=== PATIENT | female | born 1940 | race Caucasian/White ===

== ENCOUNTER 2020-03-11 08:53 | Emergency (ER) | payer MEDICARE, OTHER, SELFPAY ==
[2020-03-11 09:10] VITALS: BMI 31.5
[2020-03-11 09:16] VITALS: BP 191/85; PULSE 63; RESP 18; TEMP 36.7; O2SAT 100
--- NOTE | 2020-03-11 09:35 | XR_ITS ---
WS: [id number] EXAM: LEFT KNEE: 3 VIEWS DATE OF EXAMINATION: 03/11/2020, 1004 hours COMPARISON: None. HISTORY: Patient is 79 years old with knee pain and swelling. FINDINGS: Overall bone density is decreased. Slight chondrocalcinosis changes are demonstrated. Minimal degener ative changes are noted. No fracture, lytic or blastic process. Minimal fluid in the suprapatellar po uch. Extra articular soft tissues are unremarkable. XR/XR knee LT 3V* [id number] IMPRESSION: Minimal changes of osteoarthritis. Minimal joint fluid. No acute abnormality.
--- NOTE | 2020-03-11 09:38 | ED_ITS ---
HPI - Extremity Problem General: Chief complaint: Extremity Problem,Nontraumatic Stated complaint: L KNEE PAIN Time Seen by Provider: 03/11/20 08:55 Source: patient Mode of arrival: ambulatory (with use of cane) Limitations: no limitations History of Present Illness: HPI Narrative: Patient is a 79-year-old female who presents to ED today along with her for complaints of left knee pain. Patient tells me she was in [place] yesterday and did a large amount of walking. Patient states that the end of the day she noticed pain to her left knee and swelling. Patient does have a history of osteoarthritis in the knee. She denies any direct injury or trauma. No twisting injuries. Patient is ambulatory with the help of a cane. MD Complaint: joint swelling and joint pain Onset (ago): hour(s) Pain Consistency: constant Location: left and lower extremity Relieving factors: immobilization and elevation Exacerbating factors: range of motion, weight bearing and walking Associated symptoms: Reports no associated symptoms Review of Systems Musc: Reports: joint pain and joint swelling; Denies: neck pain, back pain, extremity pain, extremity swelling, joint redness, joint warmth, limited range of motion or muscle cramps Neuro: Denies: numbness in extremities or sensory changes Physical Exam Const: COMMON NORMALS: no acute distress, average body habitus, patient oriented x3, no limitations, healthy appearing, alert and well nourished Extremity: GENERAL: Yes normal exam except as noted LEFT LOWER EXTREMITY: Yes knee joint Left knee: Yes inspection (effusion noted), Yes palpation (mild- anterior/medial joint line), Yes ROM (normal) and Yes neurovascular exam (normal) Neuro: COMMON NORMALS: patient oriented x3 SENSORIUM/ORIENTATION: Yes alert Skin: NARRATIVE SKIN EXAM: normal skin examination; no redness/heat overlying knee joint Course Vital Signs: Vital signs: Vital Signs Temperature 98.0 F 03/11/20 09:16 Pulse Rate 63 03/11/20 09:16 Respiratory Rate 18 03/11/20 09:16 Blood Pressure 191/85 03/11/20 09:16 Pulse Oximetry 100 03/11/20 09:16 MDM - Extremity (Nontraumatic) Imaging Data^: XR L knee: Radiologist's impression: [address] [address] XRay Report Signed Patient: Gabbie Flores Unit #: [id number] : 1940 Age/Sex: 79 / F ADM Date: 03/11/20 Loc: ER Room/Bed: Attending Dr: Ordering Provider/Ordering MD: Serenity Grace Date of Service: 03/11/20 Procedure(s): XR knee LT 3V* [id number] Accession Number(s): [id number] Report Number: [id number] WS: [id number] EXAM: LEFT KNEE: 3 VIEWS DATE OF EXAMINATION: 03/11/2020, 1004 hours COMPARISON: None. HISTORY: Patient is 79 years old with knee pain and swelling. FINDINGS: Overall bone density is decreased. Slight chondrocalcinosis changes are demonstrated. Minimal degenerative changes are noted. No fracture, lytic or blastic process. Minimal fluid in the suprapa tellar pouch. Extra articular soft tissues are unremarkable. XR/XR knee LT 3V* [id number] IMPRESSION: Minimal changes of osteoarthritis. Minimal joint fluid. No acute abnormality. Dictated By: Candido Rangel MD Signed By: Candido Rangel MD Signed Date/Time: 03/11/20 1017 DD/ 1016 Discharge Plan Discharge Patient Disposition: Home Clinical Impression: Effusion of knee joint, left Condition: Stable Prescriptions: New methylprednisolone [Medrol (Chris)] 4 mg tablets,dose pack See Rx Instructions .ROUTE .COMPLEX Qty: 21 RF: 0 hydrocodone-acetaminophen 5-325 mg tablet 1 tab PO Q6H PRN (Reason: pain) Qty: 10 RF: 0 Discharge Orders: Discharge Order (Routine); Ordered 03/11/20 Ordered By: Serenity Grace Referrals: Gabi Adler, CALVIN [Primary Care Provider] - Patient Instructions: Osteoarthritis (ED), Knee Effusion (ED) Activity Restrictions/Additional Instructions: As discussed use the Juan Ramon wrap for compression of your knee joint, ice the ext remity for 20 minutes every hour, elevate as much as possible. You may use the pain medications for severe pain. Otherwise please use [id number] analgesics. Please follow-up with your primary care provider in 1 to 2 weeks for continued pain. Coding Level of Care Code ED Box Spinner for Padmini Merida
[2020-03-11 11:04] VITALS: BP 189/88; PULSE 61; RESP 18; O2SAT 100
== END 2020-03-11 11:04 | disposition home or self-care (01) ==
PROVIDERS: Emergency Provider Physician Assistant; PCP Nurse Practitioner Family
DX: M25.462 Effusion, left knee (principal)
CPT/HCPCS: 12345; 73562; 99282; 99283

== ENCOUNTER 2020-04-13 10:35 | Outpatient (CLI) | payer MEDICARE, OTHER, SELFPAY ==
--- NOTE | 2020-04-13 10:43 | XR_ITS ---
WS: [id number] CHEST 2 VIEWS HISTORY: CHEST PAIN ON BREATHING COMPARISON: 04/24/2017 Lungs: New linear scar atelectasis in the mid LEFT lung. Otherwise lungs are clear. No pleural effusi on or pneumothorax. Normal vasculature. Cardiac size: Normal. Mediastinum/Aorta: LEFT subclavian dual lead cardiac pacer. No mediastinal widening. Bones: Mild increase in thoracic kyphosis. Prior cholecystectomy. XR/XR chest 2V* [id number] IMPRESSION: 1. New minimal scar atelectasis in the mid LEFT lung. 2. No pneumonia.
== END 2020-04-13 10:36 | disposition home or self-care (01) ==
LOC: RADWPI 10:39
PROVIDERS: Family Provider Family Medicine; PCP Nurse Practitioner Family; Visit Provider Family Medicine
DX: R07.1 Chest pain on breathing (principal); J98.11 Atelectasis
CPT/HCPCS: 71046

== ENCOUNTER 2020-07-03 09:52 | Outpatient (CLI) | payer MEDICARE, OTHER, SELFPAY ==
--- NOTE | 2020-07-03 10:08 | MM_ITS ---
WS: [id number] BILATERAL DIGITAL SCREENING MAMMOGRAPHY WITH CAD CLINICAL INFORMATION: SCREENING HISTORY: Screening mammogram. No current complaints. COMPARISON: May 24, 2019 TECHNIQUE: Bilateral CC and MLO views. FINDINGS: Scattered fibroglandular densities bilaterally. No suspicious focal mass, asymmetry, calcifications, or architectural distortion. No evidence of malignancy. Punctate calcifications left breast. MM/[place] [id number] IMPRESSION: BI-RADS: 2-Benign FOLLOW UP: 1 Year Follow-up Recommend return to annual screening mammography.
== END 2020-07-03 09:53 | disposition home or self-care (01) ==
PROVIDERS: Family Provider Family Medicine; PCP Nurse Practitioner Family; Visit Provider Family Medicine
DX: Z12.31 Encounter for screening mammogram for malignant neoplasm of breast (principal)
CPT/HCPCS: 77067

== ENCOUNTER 2020-10-05 10:49 | Outpatient (CLI) | payer MEDICARE, OTHER, SELFPAY ==
--- NOTE | 2020-10-05 11:01 | CT_ITS ---
WS: [id number] CT scan of the chest without IV contrast, additional two-dimensional coronal and sagittal reconstruct ion was performed. 10/05/2020 Clinical Data: LUNG NODULE Comparison: CT chest, 07/19/2019. DLP: 859.[address] scans at [facility] use at least one of these dose optimization techniques: automat ed exposure control; mA and/or kV adjustment per patient size (includes targeted exams where dose is matched to clinical indication); or iterative reconstruction. Findings: No nodules, masses or effusions are seen. The heart size is slightly enlarged with a small pericardia l effusion. No pneumonia or pneumothorax is seen. The permanent pacemaker remains in good position. T he pulmonary arterial system and thoracic aorta demonstrate no abnormalities or dilatations. There is no axillary or significant mediastinal adenopathy. The upper abdomen demonstrates clips in the gallbladder fossa from a cholecystectomy, otherwise its u nremarkable. CT/CT chest wo con [id number] Impression: 1. No pulmonary nodules are seen. 2. Cardiomegaly and small pericardial effusion.
== END 2020-10-05 10:50 | disposition home or self-care (01) ==
LOC: RADWPI 10:51
PROVIDERS: PCP Nurse Practitioner Family; Visit Provider Nurse Practitioner Family
DX: R91.1 Solitary pulmonary nodule (principal); I51.7 Cardiomegaly; I31.3 Pericardial effusion (noninflammatory)
CPT/HCPCS: 71250

== ENCOUNTER 2021-07-05 09:39 | Outpatient (CLI) | payer MEDICARE, OTHER, SELFPAY ==
--- NOTE | 2021-07-05 09:48 | MM_ITS ---
WS: [id number] BILATERAL SCREENING DIGITAL MAMMOGRAM WITH CAD HISTORY: SCREENING COMPARISON: 07/03/2020 and 05/24/2019 Bilateral CC and MLO views submitted. Computer aided detection analyzed. Breast composition: There are scattered areas of fibroglandular density. No suspicious masses, microc alcifications or architectural distortion. Benign calcification medial LEFT breast. MM/[place] [id number] IMPRESSION: BI-RADS: 2-Benign FOLLOW UP: 1 Year Follow-up
--- NOTE | 2021-07-05 10:35 | XR_ITS ---
WS: [id number] DEXA (DUAL ENERGY X-RAY ABSORPTIOMETRY) Bone mineral density was performed using a Donde machine. HISTORY: POSTMENOPAUSAL OSTEOPOROSIS COMPARISON: 04/24/2018 Lumbar spine BMD (L1-L4): 1.206 g/cm2 T score: 0.2 Z score: 1.5 Total hip BMD: Left: 0.760 g/cm2. T score: -2.0 Z score: -0.4 Right: 0.661 g/cm2. T score: -2.8 Z score: -1.2 10 year probability of a major osteoporotic fracture is 20%. Compared to the prior study from 04/24/2018. Lumbar spine bone mineral density has increased by 2.1%. Bilateral hips bone mineral density has decreased by 0.8%. XR/XR DEXA axial skeleton* [id number] IMPRESSION: OSTEOPOROSIS based upon the WHO classification for females. Significant increase in density within the lumbar spine since the prior study.
== END 2021-07-05 09:40 | disposition home or self-care (01) ==
LOC: RADSHAW 09:44
PROVIDERS: PCP Family Medicine; Visit Provider Family Medicine
DX: Z12.31 Encounter for screening mammogram for malignant neoplasm of breast (principal); Z78.0 Asymptomatic menopausal state; M81.0 Age-related osteoporosis without current pathological fracture
CPT/HCPCS: 77067; 77080

== ENCOUNTER → 2022-01-25 11:48 | Outpatient (BNVA) | payer MEDICARE, SELFPAY | PROVIDERS: PCP Family Medicine; Visit Provider Family Medicine | DX: I10 Essential (primary) hypertension (principal); Z76.89 Persons encountering health services in other specified circumstances; I70.1 Atherosclerosis of renal artery; E78.2 Mixed hyperlipidemia; M54.50 Low back pain, unspecified; J30.9 Allergic rhinitis, unspecified | CPT/HCPCS: 80053; 80061; 85025 ==

== ENCOUNTER 2022-07-06 09:51 | Outpatient (CLI) | payer MEDICARE, OTHER, SELFPAY ==
--- NOTE | 2022-07-06 10:00 | MM_ITS ---
WS: [id number] SCREENING DIGITAL BREAST TOMOSYNTHESIS MAMMOGRAM WITH CAD HISTORY: SCREENING COMPARISON: 05/01/2013, 07/05/2021, 07/03/2020 and 05/24/2019 Bilateral CC and MLO with tomosynthesis and synthetic mammography submitted. Computer aided detection analyzed. Breast composition: There are scattered areas of fibroglandular density. Partially obscured nodular d ensities posterior to the RIGHT nipple. Some of these are tubular in shape. These are similar to the study from 2020 but increased prior to those examinations. These may be ducts with ectasia. LEFT mejia st is negative. MM/[place] [id number] IMPRESSION: BI-RADS: 0-Incomplete: Need additional imaging evaluation FOLLOW UP: Need Additional Imaging Recommendation: RIGHT breast ultrasound follow-up directed to the subareolar lo cation to evaluate the ducts and along 6:00 axis.
== END 2022-07-06 09:52 | disposition home or self-care (01) ==
LOC: RAD 09:51
PROVIDERS: PCP Family Medicine; Visit Provider Family Medicine
DX: Z12.31 Encounter for screening mammogram for malignant neoplasm of breast (principal)
CPT/HCPCS: 77063; 77067

== ENCOUNTER 2022-07-22 14:47 | Outpatient (CLI) | payer MEDICARE, OTHER, SELFPAY ==
--- NOTE | 2022-07-22 14:59 | US_ITS ---
WS: [id number] ULTRASOUND RIGHT BREAST HISTORY: Abnormal R breast findings on mammo COMPARISON: 07/06/2022 TECHNIQUE: 2-D and Doppler. Ultrasound directed to the RIGHT subareolar region. In the anterior breast on the recent mammogram th ere were a few tubular overlying partially obscured structures. No abnormality is noted by ultrasound . No dilated ducts or mass or cyst. Changes noted on the recent mammogram were likely superimposed so ft tissues. US/US breast RT complete [id number] IMPRESSION: BI-RADS: 2-Benign FOLLOW-UP: 1 Year Follow-up Return to annual screening mammography.
== END 2022-07-22 14:48 | disposition home or self-care (01) ==
LOC: RAD 14:49
PROVIDERS: PCP Family Medicine; Visit Provider Family Medicine
DX: R92.8 Other abnormal and inconclusive findings on diagnostic imaging of breast (principal); N63.10 Unspecified lump in the right breast, unspecified quadrant
CPT/HCPCS: 76641

== ENCOUNTER → 2022-08-25 11:30 | Outpatient (BNVA) | payer MEDICARE, OTHER, SELFPAY | PROVIDERS: PCP Family Medicine; Visit Provider Family Medicine | DX: I10 Essential (primary) hypertension (principal); M79.89 Other specified soft tissue disorders | CPT/HCPCS: 80048; 84443; 85025 ==

== ENCOUNTER → 2022-11-09 11:40 | Outpatient (BNVA) | payer MEDICARE, OTHER, SELFPAY | PROVIDERS: PCP Family Medicine; Visit Provider Family Medicine | DX: E55.9 Vitamin D deficiency, unspecified (principal); N18.9 Chronic kidney disease, unspecified; I10 Essential (primary) hypertension; I70.1 Atherosclerosis of renal artery | CPT/HCPCS: 80048; 82043; 82652 ==

== ENCOUNTER → 2022-11-10 15:58 | Outpatient (BNVA) | payer MEDICARE, OTHER, SELFPAY | PROVIDERS: PCP Family Medicine; Visit Provider Family Medicine | DX: E55.9 Vitamin D deficiency, unspecified (principal) | CPT/HCPCS: 82306 ==

== ENCOUNTER 2023-03-14 17:20 | Inpatient (IN) | payer MEDICARE, OTHER, SELFPAY ==
[2023-03-14 17:23] VITALS: BP 161/69; PULSE 66; RESP 18; TEMP 36.8; O2SAT 99; BMI 31.5
[2023-03-14 17:34] VITALS: BP 161/69; PULSE 67; RESP 18; O2SAT 95
--- NOTE | 2023-03-14 17:38 | ED_ITS ---
HPI - Extremity Problem General: Chief complaint: Extremity Injury, Lower Stated complaint: Fall Time Seen by Provider: 03/14/23 17:37 History of Present Illness: 82-year-old female comes in today for complaints of right hip pain. Patient was getting up from the table when she caught her foot on the chair next to her causing her to trip and fall. Patient reports pain in the right hip with movement. Patient has a history of pacemaker insertion and being on Xarelto. Patient has a history of hypertension, renal artery stenosis, chronic kidney disease, atrial fib. Patient appears nontoxic. Patient was given 200 mcg of fentanyl in route to the ER. Patient reports pain with movement of the right hip. Distal pulses and sensation are intact. Patient denies head injury. Associated symptoms: Deny chest pain or fever(s) Review of Systems General: Reports: 10 or more systems reviewed and unremarkable except in HPI and below Const: Denies: fever(s) Card: Denies: chest pain Resp: Denies: dyspnea GI: Denies: nausea or vomiting : Denies: difficulty voiding Musc: Reports: joint pain (Right hip) [facility] ED PFSH: Medical History Hypertension Pacemaker Social History Smoking and tobacco status: never smoked Alcohol intake: never Female Reproductive History: Spontaneous abortions: No Physical Exam Const: COMMON NORMALS: alert HENMT: COMMON NORMALS: normocephalic HEAD & SCALP: normocephalic Neck/C-Spine: COMMON NORMALS: full ROM Resp: COMMON NORMALS: normal respiratory effort and clear to auscultation bilaterally AUSCULTATION: clear to auscultation bilaterally Cardio: COMMON NORMALS: regular rate and regular rhythm RATE: regular rate RHYTHM: regular rhythm GI: COMMON NORMALS: Soft to palpation and non-tender PALPATION: Yes Soft to palpation Back/Pelvis: COMMON NORMALS: thoracic and lumbar spine normal to inspection THORACIC SPINE/UPPER BACK: No thoracic spinal tenderness LUMBAR SPINE/LOWER BACK: No lumbar spinal tenderness Extremity: RIGHT LOWER EXTREMITY: Yes hip joint (Decreased range of motion due to pain) LEFT LOWER EXTREMITY: Yes hip joint (Intact range of motion but painful with movement) Neuro: SENSORIUM/ORIENTATION: Yes alert Skin: COMMON NORMALS: turgor normal GENERAL SKIN EXAM: turgor normal Course Vital Signs: Vital signs: Vital Signs Temperature 98.2 F 03/14/23 17:23 Pulse Rate 67 03/14/23 17:34 Respiratory Rate 18 03/14/23 17:34 Blood Pressure 161/69 03/14/23 17:34 Pulse Oximetry 95 03/14/23 17:34 Oxygen Delivery Me thod Room Air 03/14/23 17:34 MDM - Extremity (Nontraumatic) Medical Decision Making 82-year-old female comes in today with injury to the right hip. Patient had tripped and fell at home landing on her right side. Patient has had pain and discomfort with movement of the right hip. Patient also reports some pain but is able to move left hip. Vital signs are normal except for some mild elevation in blood pressure. Patient was given 200 mcg of fentanyl in route by EMS. Distal pulses and sensation are intact. Patient is on Xarelto. Differential diagnosis includes pelvic fracture, right hip fracture, hematoma, bruising, sprain. X-ray of the right hip noted a incomplete fracture. Reviewed with Dr. Hubbard who accepted the patient for further evaluation and treatment with hospitalist to consult. Hospitalist Dr. Can accepted patient. Reviewed with Dr. Mariano, attending ER physician, who agreed to plan. Patient and family notified and agreed with plan. Lab Data Radiology Impressions Hip/Pelvis X-Ray 03/14/23 17:43 IMPRESSION: Mildly displaced and angulated comminuted right proximal femur fracture. Discharge Plan Discharge Condition: Stable Prescriptions: No Action diclofenac sodium [Arthritis Pain (diclofenac)] 1 % gel 2 g topical QID Qty: 100 6RF Rx Instructions: apply to single elbow, wrist or hand; for hand includes palm/fingers/back of hand Premarin 0.625 mg/gram cream 0.625 mg vaginal DAILY Qty: 30 6RF Rx Instructions: off 5 days; repeat cycle amlodipine 5 mg tablet 5 mg PO DAILY Qty: 90 3RF metoprolol succinate 25 mg tablet extended release 24 hr 25 mg PO DAILY Qty: 90 3RF spironolactone 25 mg tablet 25 mg PO DAILY Qty: 90 3RF ciprofloxacin-dexamethasone [Ciprodex] 0.3-0.1 % drops,suspension 4 drp otic (ear) BID 7 Days Qty: 7.5 0RF pantoprazole 40 mg tablet,delayed release (DR/EC) 40 mg PO BID Qty: 180 3RF rosuvastatin 20 mg tablet 20 mg PO DAILY Qty: 90 3RF nitroglycerin 0.4 mg/hr patch 24 hour See Rx Instructions .ROUTE .COMPLEX Qty: 30 11RF Dose Instruction: APPLY 1 PATCH TRANSDERMALLY DAILY. ALLOW NITRATE FREE INTERVAL OF APPROXIMATELY 10 TO 12 HOURS PER 24 HOUR PERIOD Rx Instructions: APPLY 1 PATCH TRANSDERMALLY DAILY. ALLOW NITRATE FREE INTERVAL OF APPROXIMATELY 10 TO 12 HOURS PER 24 HOUR PERIOD valsartan 320 mg tablet 320 mg PO DAILY Qty: 90 3RF lidocaine 5 % adhesive patch,medicated See Rx Instructions .ROUTE .COMPLEX Qty: 30 11RF Dose Instruction: APPLY 1 PATCH TOPICALLY DAILY. LEAVE ON MOST PAINFUL AREA FOR UP TO 12 HOURS Rx Instructions: APPLY 1 PATCH TOPICALLY DAILY. LEAVE ON MOST PAINFUL AREA FOR UP TO 12 HOURS benzonatate 100 mg capsule 100 mg PO TID Qty: 30 0RF Centrum Silver Women 8 mg iron-400 mcg-300 mcg tablet 1 tab PO DAILY hydrochlorothiazide 50 mg tablet 50 mg PO DAILY melatonin 3 mg tablet 6 mg PO DAILY Premarin 0.625 mg/gram cream 0.625 mg vaginal DAILY Rx Instructions: off 5 days; repeat cycle cholecalciferol (vitamin D3) [Vitamin D3] 125 mcg (5,000 unit) tablet 125 mcg PO DAILY Xarelto 20 mg tablet See Rx Instructions .ROUTE .COMPLEX Qty: 90 3RF Dose Instruction: TAKE 1 TABLET DAILY. MUST ADMINISTER WITH EVENING MEAL Rx Instructions: TAKE 1 TABLET DAILY. MUST ADMINISTER WITH EVENING MEAL gabapentin 100 mg capsule 100 mg PO DAILY Qty: 90 3RF albuterol sulfate [ProAir HFA] 90 mcg/actuation HFA aerosol inhaler 1 puff inhalation Q6H PRN (Reason: shortness of breath or wheezing) Qty: 8.5 3RF Rx Instructions: Inhale 1 puff by mouth every 6 hours. Referrals: Eh Britt DO [Primary Care Provider] - Coding Level of Care Code ED Staff Home Therapy Rn for Padmini Merida
--- NOTE | 2023-03-14 17:43 | XRR_ITS ---
PROCEDURE INFORMATION: Exam: XR Right Hip Exam date and time: 03/14/2023 5:46 PM Age: 82 years old Clinical indication: Hip pain; Right hip; Additional info: Fall injury, include pelvis TECHNIQUE: Imaging protocol: Radiologic exam of the right hip. Views: 1 view hip with pelvis when performed. COMPARISON: No relevant prior studies available. FINDINGS: Bones/joints: Mildly displaced, angulated right proximal femur fracture with likely comminution involving the greater trochanter, subtrochanteric femur, and extending to the lesser trochanter. Mild right hip degenerative change. Soft tissues: Unremarkable. XR/XR hip RT 2-3V wo/w pel* [id number] IMPRESSION: Mildly displaced and angulated comminuted right proximal femur fracture.
--- NOTE | 2023-03-14 18:01 | ECG_ITS ---
[facility] Test Date: 2023-03-14 Pat Name: Gabbie Flores Department: Room: Gender: Female Well Head Pumper: : 1940 Requested By: Emmanuel Friedman Order Number: [id number] Dominique MD: Kendra Sanchez M.D. Measurements Intervals [place] Rate: 66 P: 71 [place]: 181 QRS: 45 QRSD: 105 T: 19 QT: 365 QTc: 384 Interpretive Statements SINUS RHYTHM NONSPECIFIC ST & T-WAVE ABNORMALITY Compared to ECG 12/05/2014 10:15:45 T-wave abnormality now present Atrial flutter no longer present Intraventricular conduction delay no longer present Electronically Signed On 03-15-2023 20:31:17 CDT by Kendra Sanchez M.D. [id number]
--- NOTE | 2023-03-14 18:01 | XRR_ITS ---
PROCEDURE INFORMATION: Exam: XR Chest Exam date and time: 03/14/2023 6:10 PM Age: 82 years old Clinical indication: Cough; Prior surgery; Surgery date: 6+ months; Surgery type: Pacemaker; Additional info: Fall, hip fracture TECHNIQUE: Imaging protocol: Radiologic exam of the chest. Views: 1 view. COMPARISON: 1. CT chest wo con [id number] 10/05/2020 11:04 AM 2. CR XR chest 2V* [id number] 04/13/2020 10:51 AM FINDINGS: Tubes, catheters and devices: Dual lead pacemaker with left chest generator and stable lead positioning at the right atrium and right ventricle. Lungs: Left lower lung linear scarring and/or subsegmental atelectasis. No consolidation. Pleural spaces: Unremarkable. No pleural effusion. No pneumothorax. Heart/Mediastinum: Unremarkable. No cardiomegaly. Diaphragm: Mild asymmetric elevation of the left hemidiaphragm. Bones/joints: Unremarkable. XR/XR chest 1V portable [id number] IMPRESSION: No acute cardiopulmonary findings.
--- NOTE | 2023-03-14 18:15 | PM.HP ---
Providers/Chief Complaint Admitting Physician: Juan R Can MD Primary Care Provider: Eh Britt DO Chief Complaint: Fall History of Present Illness Gabbie Flores is a 82 year old female with a past medical history significant for hypertension, atrial fibrillation, and hyperlipidemia who presents to the emergency department with a mechanical fall that happened prior to arrival. Patient states she was sitting down when she went to stand up she caught her right foot and fell. She states that she fell onto the hardwood floor hitting her right hip. She states that she developed severe right hip pain following that. She received fentanyl by EMS which she states significantly improved the pain. She states the pain is now getting worse as that wears off. She reports movement worsens the pain. Rest improves it. Denies prior broken bones or fractures. is bedside and very pleasant and supportive. Patient does have a history of atrial fibrillation and is prescribed Xarelto. She states that she had held that for a week besides yesterday's dose for a procedure done by Dr. Alexander. Review of Systems Narrative: A complete review of systems was obtained and is negative except as stated in HPI. Medications/Allergies Home Medications Medication Instructions Recorded Confirmed Last Taken Type cholecalciferol (vitamin D3) 125 125 mcg PO DAILY 01/25/22 02/09/23 Unknown History mcg (5,000 unit) tablet (Vitamin D3) conjugated estrogens 0.625 mg/gram 0.625 mg vaginal DAILY 01/25/22 02/09/23 Unknown History vaginal cream (Premarin) hydrochlorothiazide 50 mg tablet 50 mg PO DAILY 01/25/22 02/09/23 Unknown History melatonin 3 mg tablet 6 mg PO DAILY 01/25/22 02/09/23 Unknown History multivit with 1 tab PO DAILY 01/25/22 02/09/23 Unknown History jpsbzpom-tkdv-RO-lutein 8 mg iron-400 mcg-300 mcg tablet (Centrum Silver Women) conjugated estrogens 0.625 mg/gram 0.625 mg vaginal DAILY #30 grams 05/26/22 02/09/23 Unknown Rx vaginal cream (Premarin) diclofenac sodium 1 % topical gel 2 g topical QID #100 grams 05/26/22 02/09/23 Unknown Rx (Arthritis Pain (diclofenac)) rivaroxaban 20 mg tablet (Xarelto) See Rx Instructions .Route 08/09/22 02/09/23 Unknown Rx .COMPLEX #90 tabs gabapentin 100 mg capsule 100 mg PO DAILY #90 caps 08/25/22 02/09/23 Unknown Rx amlodipine 5 mg tablet 5 mg PO DAILY #90 tabs 11/09/22 02/09/23 Unknown Rx metoprolol succinate 25 mg 25 mg PO DAILY #90 tabs 11/09/22 02/09/23 Unknown Rx tablet,extended release 24 hr spironolactone 25 mg tablet 25 mg PO DAILY #90 tabs 11/09/22 02/09/23 Unknown Rx albuterol sulfate 90 mcg/actuation 1 puff inhalation Q6H PRN 11/15/22 02/09/23 Unknown Rx aerosol inhaler (ProAir HFA) shortness of breath or wheezing #8.5 grams benzonatate 100 mg capsule 100 mg PO TID #30 caps 02/09/23 02/09/23 Unknown Rx ciprofloxacin 0.3 %-dexamethasone 4 drp otic (ear) BID 7 days #7.5 mL 02/09/23 02/09/23 Unknown Rx 0.1 % ear drops,suspension (Ciprodex) lidocaine 5 % topical patch See Rx Instructions .Route 02/09/23 02/09/23 Unknown Rx .COMPLEX #30 patches nitroglycerin 0.4 mg/hr See Rx Instructions .Route 02/09/23 02/09/23 Unknown Rx transdermal 24 hour patch .COMPLEX #30 patches pantoprazole 40 mg tablet,delayed 40 mg PO BID #180 tabs 02/09/23 02/09/23 Unknown Rx release rosuvastatin 20 mg tablet 20 mg PO DAILY #90 tabs 02/09/23 02/09/23 Unknown Rx valsartan 320 mg tablet 320 mg PO DAILY #90 tabs 02/09/23 02/09/23 Unknown Rx Allergies Allergy/AdvReac Type Severity Reaction Status Date / Time No Known Allergies Allergy Verified 02/09/23 10:52 PFSH Acute PFSH: Medical History (Updated 03/14/23 @ 19:08 by Juan R Can MD) Abnormal mammogram of right breast Allergic rhinosinusitis Breast mass, right Establishing care with new doctor, encounter for Hypertension Left otitis externa Leg swelling Lumbar stenosis Pacemaker Renal artery stenosis Viral URI with cough Social History Smoking and tobacco status: never smoked Alcohol intake: never Female Reproductive History: Spontaneous abortions: No Vitals/I&O/Wt Last Vital Signs Temp 98.2 F 03/14/23 17:23 Pulse 67 03/14/23 17:34 Resp 18 03/14/23 17:34 BP 161/69 03/14/23 17:34 Pulse Ox 95 03/14/23 17:34 O2 Del Method Room Air 03/14/23 17:34 Weight last 48 hrs Weight 80.739 kg Physical Exam Narrative: General: Patient is awake and alert. Very pleasant. Head: Normocephalic. Atraumatic. EOM intact. Neck: No JVD. Cardiovascular: Regular rate. Hypertensive. No gallops. No murmurs. Lungs: Clear to auscultation, no use of accessory muscles, no crackles or wheezes. Skin: No jaundice. No rashes. Abdomen: Normal bowel sounds, abdomen soft and nontender. Extremities: No cyanosis or clubbing. Right lower extremity is externally rotated and shorter. Musculoskeletal: Normal muscular development. Neurological: Moves all 4 extremities. No myoclonus. Data 03/14/23 18:47 03/14/23 18:47 A&P Assessment and plan (1) Hip pain: Right hip fracture secondary to mechanical fall Bedrest Type and screen Scheduled Tylenol Oxycodone for moderate pain Dilaudid for severe pain N.p.o. after midnight Orthopedics evaluation (2) Hypertension: Blood pressure elevated Ensure appropriate analgesics Continue home amlodipine Continue home metoprolol Continue home ARB Hold home diuretics Qualifiers: Hypertension type: primary hypertension Qualified Code(s): I10 - Essential (primary) hypertension (3) Lumbar back pain: Analgesics as needed (4) Atrial fibrillation: Continue home metoprolol Hold Xarelto for possible surgery Qualifiers: Atrial fibrillation type: longstanding persistent Qualified Code(s): I48.11 - Longstanding persistent atrial fibrillation (5) CKD (chronic kidney disease): No labs obtained today Obtain labs Plan DVT prophylaxis: SCD CODE STATUS: Full code Attestations Medical Necessity Statement*: Patient presents with hip fracture with expected hospitalization for surgical evaluation and treatment to cross 2 midnights. Coding Level of Care Code Acute Code for [facility] Diagnoses Hip pain M25.559 Hypertension I10 Hypertension type: primary hypertension Lumbar back pain M54.50 Atrial fibrillation I48.11 Atrial fibrillation type: longstanding persistent CKD (chronic kidney disease) N18.9
--- NOTE | 2023-03-14 18:40 | CTR_ITS ---
PROCEDURE INFORMATION: Exam: CT Right Lower Extremity Without Contrast, Hip Exam date and time: 03/14/2023 7:29 PM Age: 82 years old Clinical indication: Injury or trauma; Fall; Blunt trauma; Hip; Right; Additional info: Fracture TECHNIQUE: Imaging protocol: CT of the right lower extremity without contrast was performed. Exam focused on the hip. Radiation optimization: All CT scans at this facility use at least one of these dose optimization techniques: automated exposure control; mA and/or kV adjustment per patient size (includes targeted exams where dose is matched to clinical indication); or iterative reconstruction. REPORTING DATA: Count of CT and Cardiac NM exams in prior 12 months: This patient has received 0 known CTs and 0 known cardiac nuclear medicine studies in the 12 months prior to the current study. COMPARISON: CR (PELVIS, ) 03/14/2023 5:46 PM RADIATION DOSE METRICS: Total DLP (mGy-cm): 528.65 FINDINGS: Bones/joints: Mildly displaced and angulated comminuted right proximal femur fracture involving the subtrochanteric region, greater and lesser trochanters. Mild right hip osteoarthritic change. Enthesopathy at the right ischial tuberosity. Soft tissues: Mild right hip soft tissue swelling. Vasculature: Mild vascular calcifications. Reproductive: The uterus is surgically absent. CT/CT hip RT wo con* [id number] IMPRESSION: Mildly displaced and angulated comminuted right proximal femur fracture.
[2023-03-14 18:59] LABS: Basophils % 0.1 %; Hematocrit 36.2 % (36-47); Lymphocytes # 0.5 10^3/uL (0.8-4.8); Lymphocytes % 3.6 %; Mean Corpuscular HGB Conc 33.4 g/dL (30-55); Mean Corpuscular Volume 83.8 fl (85-98); Mean Platelet Volume 9.2 fL (7.4-10.4); Monocytes # 0.5 10^3/uL (0.2-0.9); Monocytes % 3.6 %; Neutrophils # 13.61 10^3/uL (1.8-7.7); Neutrophils % 92.1 %; Nucleated Red Blood Cells % 0 %; Platelet Count 191 10^3/cmm (157-399); Red Blood Count 4.32 10^6/uL (3.85-5.65); Red Cell Distribution Width 13.5 % (12.1-15.1); White Blood Count 14.77 10^3/uL (3.29-11.43)
[2023-03-14 19:40] LABS: Magnesium 2.1 mg/dL (1.7-2.3)
[2023-03-14 19:56] LABS: Alanine Aminotransferase 13 U/L (0-33); Anion Gap 15.1 (5-19); Aspartate Amino Transferase 20 U/L (0-32); Blood Urea Nitrogen 26 mg/dL (8-23); Calcium 9.4 mg/dL (8.5-10.5); Carbon Dioxide 23 mmol/L (22-29); Chloride 104 mmol/L (98-107); Glucose 136 mg/dL (65-115); Osmolality Calculated 293 mOsm/kg (285-295); Potassium 4.1 mmol/L (3.5-5.1); Sodium 138 mmol/L (136-145); Total Bilirubin 0.4 mg/dL (0.15-1.2); Total Protein 6.8 g/dL (6.6-8.7)
[2023-03-14 19:57] LABS: Albumin Level 4.3 g/dL (3.5-5.2); Alkaline Phosphatase 84 U/L (35-105); Globulin 2.5 g/dL (1.3-4.6)
[2023-03-14 20:45] VITALS: BP 157/75; PULSE 69; RESP 17; TEMP 36.7; O2SAT 96
[2023-03-14 20:47] VITALS: BP 157/75; PULSE 69; RESP 17; TEMP 36.7; O2SAT 96
--- NOTE | 2023-03-14 21:21 | PC.NURSE ---
and patient state that someone in the ER took the patient's list of home meds. When calling ER, they state they do not have it. It is not in the patient's paper chart. Patient does not know her home medications. states it's on the portal.
[2023-03-14] MEDS: acetaminophen 325 mg Tablet 1000 MG PO (21:40)
[2023-03-14 21:41] VITALS: RESP 18; O2SAT 96
[2023-03-14] MEDS: oxyCODONE 5 mg IR Tab/Cap PO (21:41)
[2023-03-15] VITALS (12 sets, daily range): BP systolic 142–178; BP diastolic 69–77; PULSE 64–74; RESP 13–18; TEMP 36.6–37.2; O2SAT 92–97
[2023-03-15] MEDS: acetaminophen 325 mg Tablet 1000 MG PO (03:09)
--- NOTE | 2023-03-15 07:53 | PC.PHAR ---
PT STATES SHE TAKES CARE OF HER OWN MEDICATIONS-PT STATES SHE TAKES PROTONIX 40MG HS RX FILLED 03/04/23 90D/S 40MG BID-PT STATES THE DR MCMILLAND HER HCTZ 50MG DAILY AND SPIRONOLACTONE 25MG DIALY -
[2023-03-15] MEDS: oxyCODONE 5 mg IR Tab/Cap PO ×2 (09:48→21:28)
[2023-03-15] MEDS: gabapentin 100 mg Capsule PO (09:48)
[2023-03-15] MEDS: pantoprazole DR 40 mg Tablet PO (09:49)
[2023-03-15] MEDS: cholecalciferol (vitamin D3) 5,000 unit Tablet 5000 UNIT PO (09:49)
[2023-03-15] MEDS: amlodipine 5 mg Tablet PO (09:49)
--- NOTE | 2023-03-15 13:20 | PM.CONSULT ---
Providers/Reason For Consult Consulting Physician/Specialty*: Marichuy López MD Reason for Consult*: Right Subtrochanteric Femur Fracture Requesting Physician: Emmanuel Ortiz NP Attending Physician: Juan Reynolds MD Primary Care Provider: Eh Britt DO History of Present Illness History of Present Illness Gabbie Flores is a 82 year old female who presented to the emergency department last evening after a fall at home. Patient was sitting at the table, and when she pushed her chair back to get up, she caught her right foot under the leg of the chair, and she fell hard onto a hardwood floor hitting the right hip. She had severe right hip pain and was unable to ambulate. The patient presents on Xarelto due to atrial fibrillation. This had been held for a week aside from yesterday evening's dose as she recently had a procedure. Past medical history is significant for hypertension, atrial fibrillation, and hyperlipidemia. Review of Systems General: Reports: 10 or more systems reviewed and unremarkable except in HPI and below Narrative: A complete review of systems was obtained and is negative except as stated in HPI. Const: Denies: fever(s) Card: Denies: chest pain Resp: Denies: dyspnea GI: Denies: nausea or vomiting : Denies: difficulty voiding Musc: Reports: joint pain (Right hip); Denies: joint warmth Medications/Allergies Home Medications Medication Instructions Recorded Confirmed Last Taken Type cholecalciferol (vitamin D3) 125 125 mcg PO QAM 01/25/22 03/15/23 Unknown History mcg (5,000 unit) tablet (Vitamin D3) melatonin 3 mg tablet 6 mg PO BEDTIME 01/25/22 03/15/23 Unknown History multivit with 1 tab PO QAM 01/25/22 03/15/23 Unknown History cghzeivr-nlfz-ZV-lutein 8 mg iron-400 mcg-300 mcg tablet (Centrum Silver Women) albuterol sulfate 90 mcg/actuation 1 puff inhalation Q6H PRN 11/15/22 03/15/23 Unknown Rx aerosol inhaler (ProAir HFA) shortness of breath or wheezing #8.5 grams lidocaine 5 % topical patch See Rx Instructions .Route 02/09/23 03/15/23 Unknown Rx .COMPLEX #30 patches nitroglycerin 0.4 mg/hr See Rx Instructions .Route 02/09/23 03/15/23 03/14/23 Rx transdermal 24 hour patch .COMPLEX #30 patches PT STATE TOOK OFF LA amlodipine 5 mg tablet 5 mg PO QAM 03/15/23 03/15/23 Unknown History benzonatate 100 mg capsule 100 mg PO TID PRN Cough 03/15/23 03/15/23 Unknown History conjugated estrogens 0.625 mg/gram See Rx Instructions .Route .COMPLEX 03/15/23 03/15/23 Unknown History vaginal cream (Premarin) diclofenac sodium 1 % topical gel 2 g topical QID PRN Pain 03/15/23 03/15/23 Unknown History gabapentin 100 mg capsule 100 mg PO QAM 03/15/23 03/15/23 Unknown History metoprolol succinate 25 mg 25 mg PO BEDTIME 03/15/23 03/15/23 Unknown History tablet,extended release 24 hr pantoprazole 40 mg tablet,delayed 40 mg PO BEDTIME 03/15/23 03/15/23 Unknown History release rivaroxaban 20 mg tablet (Xarelto) 20 mg PO BEDTIME 03/15/23 03/15/23 Unknown History rosuvastatin 20 mg tablet 20 mg PO BEDTIME 03/15/23 03/15/23 Unknown History valsartan 320 mg tablet 320 mg PO QAM 03/15/23 03/15/23 Unknown History Allergies Allergy/AdvReac Type Severity Reaction Status Date / Time No Known Allergies Allergy Verified 03/15/23 07:39 Current Medications Generic Name Dose Route Start Last Admin Trade Name Freq PRN Reason Stop Dose Admin Acetaminophen 1,000 mg 03/14/23 20:45 03/15/23 12:05 Acetaminophen 325 Mg Tablet PO Not Given Q6H MELISSA Amlodipine Besylate 5 mg 03/15/23 09:00 03/15/23 09:49 Amlodipine 5 Mg Tablet PO 5 mg DAILY MELISSA Administration Gabapentin 100 mg 03/15/23 09:00 03/15/23 09:48 Gabapentin 100 Mg Capsule PO 100 mg DAILY MELISSA Administration Vitamin D 5,000 unit 03/15/23 09:00 03/15/23 09:49 Cholecalciferol (Vitamin D3) 5,000 Unit Tablet PO 5,000 unit DAILY MELISSA Administration PFSH Acute PFSH: Medical History Abnormal mammogram of right breast Allergic rhinosinusitis Breast mass, right Establishing care with new doctor, encounter for History of renal angiogram Hypertension Left otitis externa Leg swelling Lumbar stenosis Pacemaker Renal artery stenosis Viral URI with cough Surgical History History of carpal tunnel surgery of left wrist History of carpal tunnel surgery of right wrist History of cholecystectomy S/P ablation of atrial fibrillation Social History Smoking and tobacco status: never smoked Alcohol intake: never Female Reproductive History: Spontaneous abortions: No Dietary Habits: Caffeine: Yes Vitals/I&O/Wt Last Vital Signs Temp 98.5 F 03/15/23 12:42 Pulse 64 03/15/23 12:42 Resp 18 03/15/23 12:42 BP 168/71 03/15/23 12:42 Pulse Ox 93 03/15/23 12:42 O2 Del Method Room Air 03/15/23 12:42 03/14/23 03/15/23 03/15/23 22:59 06:59 14:59 Output Total 300 / 300 750 / 1050 Balance -300 / -300 -750 / -1050 Weight last 48 hrs Weight 119 lb 9.6 oz Weight 178 lb Physical Exam Const: COMMON NORMALS: no acute distress, average body habitus, patient oriented x3 and alert GENERAL APPEARANCE: cooperative and comfortable ORIENTATION/CONSCIOUSNESS: Yes awake HENMT: COMMON NORMALS: normocephalic and atraumatic HEAD & SCALP: normocephalic and atraumatic Eye: GENERAL EYE: appearance normal, both eyes and all related structures Chest: COMMONS NORMALS: normal inspection of the chest Resp: COMMON NORMALS: normal respiratory effort EFFORT & INSPECTION: Yes able to speak in complete sentences and Yes symmetric chest movement Extremity: RIGHT LOWER EXTREMITY: Yes hip joint (Patient is neurologically intact) Right hip: Yes inspection (No significant swelling at the hip), Yes ROM (Not evaluated secondary to fracture) and Yes neurovascular exam (No evidence of DVT) Neuro: COMMON NORMALS: patient oriented x3 SENSORIUM/ORIENTATION: Yes alert Psych: COMMON NORMALS: mental status grossly normal APPEARANCE: Yes grossly normal ATTITUDE: Yes calm and Yes engaged ATTENTION/CONCENTRATION: Yes attention grossly intact Skin: COMMON NORMALS: no rashes or lesions noted GENERAL SKIN EXAM: no rashes or lesions noted Urinary Catheter Management: Cates: Cath Placed During This Visit: yes Reason for Continuing Indwelling Catheter: Perioperative Use in Selected Surgeries Urinary Catheter Date of Insertion: 03/14/23 Urinary Catheter Time of Insertion: 21:34 Data 03/16/23 04:27 03/16/23 04:27 Xray Ortho: My impression: X-rays were obtained at [facility], and these were personally interpreted by me. The x-ray images include an AP pelvis as well as isolated AP and lateral of the patient's right proximal femur. AP pelvis demonstrates leg lengths are essentially equal. There is a proximal femur fracture involving the greater trochanter extending into the subtrochanteric area. This is quite comminuted, on CT was obtained to ensure this was not a pathologic fracture. Other CT: Radiologist's impression: CT demonstrated a mildly displaced and angulated comminuted right proximal femur fracture. No mention is made of pathologic fracture. A&P Assessment and plan (1) Fracture, subtrochanteric, right femur, closed: Discussion was undertaken with the patient that she has a comminuted proximal femur fracture involving the subtrochanteric area as well as the greater trochanter and intertrochanteric areas. There is angulation and displacement at the fracture site. I discussed with the patient appropriate treatment is a long trochanteric nail. Risks and complications of this surgery were discussed with the patient. She understands and is consented for the surgery. Qualifiers: Encounter type: initial encounter Fracture alignment: displaced Qualified Code(s): S72.21XA - Displaced subtrochanteric fracture of right femur, initial encounter for closed fracture (2) Closed intertrochanteric fracture of right hip: Qualifiers: Encounter type: initial encounter Fracture alignment: displaced Qualified Code(s): S72.141A - Displaced intertrochanteric fracture of right femur, initial encounter for closed fracture Coding Level of Care Code Acute Code for g [facility]wd Diagnoses Fracture, subtrochanteric, right femur, closed S72.21XA Encounter type: initial encounter Fracture alignment: displaced Closed intertrochanteric fracture of right hip S72.141A Encounter type: initial encounter Fracture alignment: displaced
[2023-03-15 13:59] LABS: Iron 38 ug/dL (37-145); Percent Saturation 11.8 % (20-50); Total Iron Binding Capacity 322 mcg/dl; Unsaturated Iron Binding 284 ug/dL (112-347); Vitamin B12 833 pg/mL (232-1245)
--- NOTE | 2023-03-15 15:07 | PM.PN ---
Subjective Subjective: No acute events overnight. Patient denies any nausea, vomiting, headache. Laying comfortably in bed. States pain is well controlled until she tries to move. Appreciate blood work. Vitals/I&O/Wt Last Vital Signs Temp 98.5 F 03/15/23 12:42 Pulse 64 03/15/23 12:42 Resp 18 03/15/23 12:42 BP 168/71 03/15/23 12:42 Pulse Ox 93 03/15/23 12:42 O2 Del Method Room Air 03/15/23 12:42 03/15/23 03/15/23 03/15/23 06:59 14:59 22:59 Intake Total 480 / 480 Output Total 750 / 1050 Balance -750 / -1050 480 / 480 Weight last 48 hrs Weight 54.25 kg Weight 80.739 kg Physical Exam Narrative: General: Patient is awake and alert. Very pleasant. Head: Normocephalic. Atraumatic. EOM intact. Neck: No JVD. Cardiovascular: Regular rate. Hypertensive. No gallops. No murmurs. Lungs: Clear to auscultation, no use of accessory muscles, no crackles or wheezes. Skin: No jaundice. No rashes. Abdomen: Normal bowel sounds, abdomen soft and nontender. Extremities: No cyanosis or clubbing. Right lower extremity is externally rotated and shorter. Musculoskeletal: Normal muscular development. Neurological: Moves all 4 extremities. No myoclonus. Urinary Catheter Management: Cates: Cath Placed During This Visit: yes Reason for Continuing Indwelling Catheter: Perioperative Use in Selected Surgeries Urinary Catheter Date of Insertion: 03/14/23 Urinary Catheter Time of Insertion: 21:34 Data 03/14/23 18:47 03/14/23 18:47 A&P Assessment and plan (1) Hip pain: Insetting of right femur fracture. Orthopedics consulted. Plan for ORIF. N.p.o. after midnight. Holding off on surgery today given patient being on Xarelto. PT/pain management/anticoagulation as per surgical team. Monitor hemoglobin. Postoperatively early ambulation. (2) Fracture of proximal end of right femur: (3) Hypertension: Goal blood pressure less than 140/90 mmHg. Continue home antihypertensives including amlodipine, metoprolol, ARB. Uptitrate as per goal blood pressure. Qualifiers: Hypertension type: primary hypertension Qualified Code(s): I10 - Essential (primary) hypertension (4) Lumbar back pain: Analgesics as needed (5) Atrial fibrillation: Post ablation. Rate controlled. Continue home metoprolol Hold Xarelto for possible surgery Qualifiers: Atrial fibrillation type: longstanding persistent Qualified Code(s): I48.11 - Longstanding persistent atrial fibrillation (6) CKD (chronic kidney disease): Creatinine at baseline. Medical reconciliation done. Monitor BMP daily. (7) Pacemaker: Plan Leukocytosis: Patient denies any difficulty in breathing. Complains of mild dysuria. Check urinalysis. Empirically start on IV ceftriaxone 1 g daily for now. Could be secondary to dehydration. Start on normal saline at 50 cc/h for 1 bag. DVT prophylaxis: SCD CODE STATUS: Full code Cardiac diet, n.p.o. after midnight. Discharge planning: Discussed in detail with patient regarding home with home health versus discharge to SNF given need for physical therapy on discharge. Patient will try to discharge home if possible with home health. We will make further decisions postoperatively. Discussed plan for OR in detail with the patient. All the questions were answered best to the capabilities. Will defer further questions to the orthopedic team. Attestations Medical Necessity Statement*: Requires further hospitalization for management of right proximal femur fracture in a patient with history of hypertension, atrial fibrillation post ablation. Diagnoses Hip pain M25.559 Fracture of proximal end of right femur S72.001A Hypertension I10 Hypertension type: primary hypertension Lumbar back pain M54.50 Atrial fibrillation I48.11 Atrial fibrillation type: longstanding persistent CKD (chronic kidney disease) N18.9 Pacemaker Z95.0
[2023-03-15] MEDS: losartan 50 mg Tablet 100 MG PO (17:42)
[2023-03-15] MEDS: sodium chloride 0.9% 1,000 ML 50 ML IV (17:45)
[2023-03-15] MEDS: cefTRIAXone 1,000 MG in sodium chloride 0.9% (plus) 50 ML 100 MG IV (17:50)
[2023-03-15] MEDS: atorvastatin 40 mg Tablet 80 MG PO (21:10)
[2023-03-15] MEDS: metoprolol succinate ER (24 HR) 25 mg Tablet PO (21:10)
[2023-03-15] MEDS: acetaminophen 500 mg Tablet 1000 MG PO (23:37)
[2023-03-16] VITALS (16 sets, daily range): BP systolic 107–179; BP diastolic 48–72; PULSE 59–78; RESP 13–20; TEMP 36.1–37.6; O2SAT 90–98
--- NOTE | 2023-03-16 | XR_ITS ---
WS: [id number] EXAMINATION: XR femur RT min 2V* [id number] REASON FOR EXAM: OR PIC. ORIF right femur. COMPARISON: None available. ORDER DATE: 03/16/2023 12:00 AM FINDINGS: Right femoral nailing has restored the approximation of the comminuted intratrochanteric/subtrochante cornell fracture of the right hip.. IMPRESSION: Total fluoroscopy time 259.3 seconds
[2023-03-16 01:42] LABS: Add Urine Microscopic? YES; Bilirubin Urine Neg (Negative); Blood Urine 2+ (Negative); Glucose Urine UA Norm (Normal); Ketones Urine Negative (Negative); Leukocyte Esterase Urine 1+ (Negative); Nitrate Urine Negative (Negative); Protein Urine Neg (Negative); Specific Gravity, Urine 1.015 (1.005-1.030); Urine Color Yellow (Yellow); Urobilinogen Urine Neg (Negative); pH Urine 5 (5-7)
[2023-03-16 01:44] LABS: Add Urine Culture? Yes; Bacteria Urine 1+ /hpf; Urine Appearance SL Hazy (CLEAR)
[2023-03-16 05:07] LABS: Basophils % 0.5 %; Eosinophils # 0.4 10^3/uL (0.0-0.8); Eosinophils % 5.6 %; Hematocrit 33.7 % (36-47); Lymphocytes # 0.9 10^3/uL (0.8-4.8); Lymphocytes % 13.3 %; Mean Corpuscular HGB Conc 32.9 g/dL (30-55); Mean Corpuscular Hemoglobin 28.2 pg (27-33); Mean Corpuscular Volume 85.5 fl (85-98); Mean Platelet Volume 9.4 fL (7.4-10.4); Monocytes # 0.5 10^3/uL (0.2-0.9); Monocytes % 8.4 %; Neutrophils # 4.64 10^3/uL (1.8-7.7); Neutrophils % 71.7 %; Nucleated Red Blood Cells % 0 %; Platelet Count 133 10^3/cmm (157-399); Red Blood Count 3.94 10^6/uL (3.85-5.65); Red Cell Distribution Width 13.5 % (12.1-15.1); White Blood Count 6.46 10^3/uL (3.29-11.43)
[2023-03-16 05:24] LABS: Alanine Aminotransferase 10 U/L (0-33); Albumin Level 3.7 g/dL (3.5-5.2); Alkaline Phosphatase 81 U/L (35-105); Anion Gap 13.2 (5-19); Aspartate Amino Transferase 17 U/L (0-32); Blood Urea Nitrogen 23 mg/dL (8-23); Calcium 8.7 mg/dL (8.5-10.5); Carbon Dioxide 26 mmol/L (22-29); Chloride 104 mmol/L (98-107); Glucose 107 mg/dL (65-115); Osmolality Calculated 292 mOsm/kg (285-295); Potassium 4.2 mmol/L (3.5-5.1); Sodium 139 mmol/L (136-145); Total Bilirubin 0.8 mg/dL (0.15-1.2); Total Protein 5.7 g/dL (6.6-8.7)
[2023-03-16 05:50] LABS: Folate Level > 20.0 ng/mL (4.8-37.3)
[2023-03-16 05:58] LABS: Estmated Average Glucose 103; Hemoglobin A1C 5.2 % (4.0-6.0)
--- NOTE | 2023-03-16 06:12 | PC.NURSE ---
Pt left with Surgical nurse at this time.
[2023-03-16] MEDS: sodium chloride 0.9% 1,000 ML 30 ML IV (06:22)
[2023-03-16] MEDS: gabapentin 300 mg Capsule PO (07:03)
[2023-03-16] MEDS: CELEcoxib 200 mg Capsule 400 MG PO (07:03)
[2023-03-16] MEDS: acetaminophen 1,000 MG/100 ML PIGGYBACK 400 MG IV (07:03)
[2023-03-16] MEDS: ceFAZolin 2,000 MG in sodium chloride 0.9% (plus) 50 ML 100 MG IV ×3 (07:09→22:28)
[2023-03-16] MEDS: lidocaine-epi 1% 20 mL INJ INJECTION (07:39)
[2023-03-16] MEDS: BUPivacaine 0.5% INJ 30 mL INJECTION (07:39)
[2023-03-16] MEDS: ceFAZolin 1,000 mg SDV 1000 MG IRRIGATION (07:41)
--- NOTE | 2023-03-16 07:58 | P.ANESASSM_ITS ---
Pre-Anesthetic Assessment Height/Weight: Height 1.6 m Weight 54.25 kg Temp Pulse Resp BP Pulse Ox O2 Del Method 99.7 F H 68 18 179/65 93 Room Air 03/16/23 06:15 03/16/23 06:15 03/16/23 06:15 03/16/23 06:15 03/16/23 06:15 03/16/23 06:15 Operation Date: 03/16/23 07:00 Proposed Procedures p Trochanteric Femoral Nail (most likely Long nail)(Right) - Marichuy López MD Familial anesthetic complications: none Was Beta Chichi taken within 24 hours: Yes Was Clonidine taken within 24 hours: N/A Social No alcohol and No tobacco Exam alert, oriented x 3, clear to auscultation bilaterally and regular rate & rhythm Airway Submandibular: within normal limits Cervical ROM: within normal limits Mallampati: Class II Dentition: chipped Pulmonary Chronic Obstructive Pulmonary Disease CV/HEM Hypertension Pacemaker Chronic Renal Insufficiency GI Gastroesophageal Reflux Disease Musc/skel Lower Back Pain and Osteoarthritis/DJD Anesthetic Plan ASA status: 3 Anesthesia: General Medications/Allergies Home Medications Medication Instructions Recorded Confirmed Last Taken Type cholecalciferol (vitamin D3) 125 125 mcg PO QAM 01/25/22 03/15/23 Unknown History mcg (5,000 unit) tablet (Vitamin D3) melatonin 3 mg tablet 6 mg PO BEDTIME 01/25/22 03/15/23 Unknown History multivit with 1 tab PO QAM 01/25/22 03/15/23 Unknown History ebtzzjpx-jfro-DB-lutein 8 mg iron-400 mcg-300 mcg tablet (Centrum Silver Women) albuterol sulfate 90 mcg/actuation 1 puff inhalation Q6H PRN 11/15/22 03/15/23 Unknown Rx aerosol inhaler (ProAir HFA) shortness of breath or wheezing #8.5 grams lidocaine 5 % topical patch See Rx Instructions .Route 02/09/23 03/15/23 Unknown Rx .COMPLEX #30 patches nitroglycerin 0.4 mg/hr See Rx Instructions .Route 02/09/23 03/15/23 03/14/23 Rx transdermal 24 hour patch .COMPLEX #30 patches PT STATE TOOK OFF LA amlodipine 5 mg tablet 5 mg PO QAM 03/15/23 03/15/23 Unknown History benzonatate 100 mg capsule 100 mg PO TID PRN Cough 03/15/23 03/15/23 Unknown History conjugated estrogens 0.625 mg/gram See Rx Instructions .Route .COMPLEX 03/15/23 03/15/23 Unknown History vaginal cream (Premarin) diclofenac sodium 1 % topical gel 2 g topical QID PRN Pain 03/15/23 03/15/23 Unknown History gabapentin 100 mg capsule 100 mg PO QAM 03/15/23 03/15/23 Unknown History metoprolol succinate 25 mg 25 mg PO BEDTIME 03/15/23 03/15/23 Unknown History tablet,extended release 24 hr pantoprazole 40 mg tablet,delayed 40 mg PO BEDTIME 03/15/23 03/15/23 Unknown History release rivaroxaban 20 mg tablet (Xarelto) 20 mg PO BEDTIME 03/15/23 03/15/23 Unknown History rosuvastatin 20 mg tablet 20 mg PO BEDTIME 03/15/23 03/15/23 Unknown History valsartan 320 mg tablet 320 mg PO QAM 03/15/23 03/15/23 Unknown History Allergies Allergy/AdvReac Type Severity Reaction Status Date / Time No Known Allergies Allergy Verified 03/15/23 07:39 Current Medications Generic Name Dose Route Start Last Admin Trade Name Freq PRN Reason Stop Dose Admin Acetaminophen 1,000 mg 03/15/23 23:45 03/16/23 05:28 Acetaminophen 500 Mg Tablet PO Not Given Q6H MELISSA Amlodipine Besylate 5 mg 03/15/23 09:00 03/15/23 09:49 Amlodipine 5 Mg Tablet PO 5 mg DAILY MELISSA Administration Atorvastatin Calcium 80 mg 03/15/23 21:00 03/15/23 21:10 Atorvastatin 40 Mg Tablet PO 80 mg BEDTIME MELISSA Administration Gabapentin 100 mg 03/15/23 09:00 03/15/23 09:48 Gabapentin 100 Mg Capsule PO 100 mg DAILY MELISSA Administration Sodium Chloride 1,000 mls @ 50 mls/hr 03/15/23 15:15 03/15/23 17:45 Sodium Chloride 0.9% IV 50 mls/hr .Q20H MELISSA Administration Ceftriaxone Sodium 1,000 mg/ 50 mls @ 100 mls/hr 03/15/23 15:15 03/15/23 20:05 Sodium Chloride IV Infused Q24H MELISSA Infusion Protocol Sodium Chloride 1,000 mls @ 30 mls/hr 03/16/23 06:15 03/16/23 06:22 Sodium Chloride 0.9% IV 03/17/23 06:14 30 mls/hr .Q24H MELISSA Administration Losartan Potassium 100 mg 03/15/23 13:00 03/16/23 05:27 Losartan 50 Mg Tablet PO Not Given QAM MELISSA Metoprolol Succinate 25 mg 03/15/23 21:00 03/15/23 21:10 Metoprolol Succinate Er (24 Hr) 25 Mg Tablet PO 25 mg DAILY@21 MELISSA Administration Oxycodone HCl 5 mg 03/15/23 12:28 03/15/23 21:28 Oxycodone 5 Mg Ir Tab/Cap PO 5 mg Q6H PRN Administration SEVERE PAIN PO 1ST Vitamin D 5,000 unit 03/15/23 09:00 03/15/23 09:49 Cholecalciferol (Vitamin D3) 5,000 Unit Tablet PO 5,000 unit DAILY MELISSA Administration PFSH Anesthesia Medical History Abnormal mammogram of right breast Allergic rhinosinusitis Breast mass, right Establishing care with new doctor, encounter for History of renal angiogram Hypertension Left otitis externa Leg swelling Lumbar stenosis Pacemaker Renal artery stenosis Viral URI with cough Surgical History History of carpal tunnel surgery of left wrist History of carpal tunnel surgery of right wrist History of cholecystectomy S/P ablation of atrial fibrillation Social History Smoking and tobacco status: never smoked Alcohol intake: never Female Reproductive History Spontaneous abortions: No Data Anesthesia 03/16/23 04:27 03/16/23 04:27 Short CBC 03/14/23 03/16/23 Range/Units 18:47 04:27 WBC 14.77 H 6.46 (3.29-11.43) 10^3/uL Hgb 12.10 11.10 L (11.27-16.99) g/dL Hct 36.2 33.7 L (36-47) % MCV 83.8 L 85.5 (85-98) fl Plt Count 191 133 L (157-399) 10^3/cmm Neut % (Auto) 92.1 71.7 % Neut # (Auto) 13.61 H 4.64 (1.8-7.7) 10^3/uL BMP 03/14/23 03/16/23 18:47 04:27 Sodium 138 139 Potassium 4.1 4.2 Chloride 104 104 Carbon Dioxide 23 26 BUN 26 H 23 Creatinine 0.8 0.9 Glucose 136 H 107 Calcium 9.4 8.7 Liver Function 03/14/23 03/16/23 Range/Units 18:47 04:27 Total Bilirubin 0.4 0.8 (0.15-1.2) mg/dL AST 20 17 (0-32) U/L ALT 13 10 (0-33) U/L Alkaline Phosphatase 84 81 (35-105) U/L Albumin 4.3 3.7 (3.5-5.2) g/dL Urine 03/16/23 Range/Units 01:32 Urine Color Yellow (Yellow) Urine Appearance Sl hazy A (CLEAR) Urine pH 5 (5-7) Ur Specific [place] 1.015 (1.005-1.030) Urine Protein Neg (Negative) Urine Glucose (UA) Norm (Normal) Urine Ketones Negative (Negative) Urine Nitrate Negative (Negative) Urine Bilirubin Neg (Negative) Ur Leukocyte Esterase 1+ H (Negative) Urine RBC 5-10 H (0-2) /hpf Urine WBC 5-10 H (0-5) /hpf Cardiac Studies: No Data to Display
--- NOTE | 2023-03-16 08:45 | P.OP_ITS ---
Operative Report Date of procedure: March 16, 2023 Pre-op diagnosis: Right subtrochanteric femur fracture with intertrochanteric extension and greater trochanter fracture Post-op diagnosis: Right subtrochanteric femur fracture with intertrochanteric extension and greater trochanter fracture Post-op findings: Comminuted proximal femur fracture involving the intertrochanteric, subtro chanteric, and greater trochanter of the right femur Procedure done: Open reduction internal fixation right subtrochanteric femur fracture with intertrochanteric and greater trochanteric extension and significant comminution Implants: The [place] trochanteric nail system with a size 11 x 380 mm x 125 degree trochanteric gamma 3 nail, a size 10.5 mm x 90 mm lag screw with a distal screw size 5 mm x 40 mm Specimens removed/disposition: None Pathology: none sent Surgeon: Marichuy López Residential Specialist: [facility] [place] operating room technicians Anesthesia: General (Per LMA, ASA 3) Estimated blood loss (mL): 20 IV fluids (mL): 600 Urine output (mL): 500 Complications: None Findings: Significant comminution of the proximal femur fracture with extension from the subtrochanteric area into the intertrochanteric and greater trochanteric areas. Condition: stable Disposition: PACU (Then return to floor for postoperative rehabilitation and pain management) Brief History: Gabbie Flores is a 82 year old female who presented to the emergency department after a fall at home.? Patient was sitting at the table, and when she pushed her chair back to get up, she caught her right foot under the leg of the chair. She fell hard onto a hardwood floor hitting the right hip.? She had severe right hip pain and was unable to ambulate.? The patient presented on Xarelto due to atrial fibrillation.? This had been held for a week aside from yesterday evening's dose as she recently had a procedure.? Past medical history is significant for hypertension, atrial fibrillation, and hyperlipidemia. The surgical procedure was discussed with the patient. Consents were signed and questions were answered. Procedure: Patient is brought to the operating theater. After undergoing adequate general anesthesia with LMA, ASA 3, the patient was transferred to the fracture table, positioned on the table and fluoroscopic guidance obtained throughout the surgical procedure. Prior to the commencement of the surgical procedure, a streeter rgical pause was performed. At the time of the surgical pause, we confirmed the site and side of surgery as well as preoperative surgical markings and appropriate and timely administration of IV antibiotics, Ancef 2 g. Availability of equipment was also confirmed. Fluoroscopy was used to confirm the fracture was appropriately reduced in both AP and lateral planes. An incision was then made slightly above the greater trochanter to allow access to the greater trochanter. An awl was used to enter the greater trochanter and a guidewire was subsequently placed. Once the guidewire was confirmed to be in appropriate position in AP and lateral planes, reaming was accomplished over this to allow for the proximal diameter of the nail.? Guidewire was then removed, and a long guidewire was placed under fluoroscopic guidance from the proximal femur to the knee area. Confirmation was made that it was in appropriate position for the long gamma nail. Reaming was then accomplished over this guidewire. We reamed to a size 12.5 mm to allow for the 11 mm nail. Prior to reaming, measurement was made that indicated the appropriate length would be a 380 mm nail. Therefore the nail chosen was 11 mm x 380 mm x 125 degrees for the right femur. The nail was placed into appropriate position with positioning being confirmed in AP and lateral planes on the x-ray. It passed without difficulty. Guidewire was then passed through the jigging system into the femoral head. We wanted to be center or slightly inferior and posterior to center. Guidewire was placed into appropriate position. Once the guidewire was in appropriate position and this position was confirmed by x-ray.? The guidewire was measured, and we chose a 95 mm lag screw.? We reamed to allow for the lag screw to be placed.? The 95 mm lag screw was then passed into the femoral head through the trochanteric nail. This was passed uneventfully and again position was confirmed in AP and lateral planes.? The set screw was then placed in position, tightened completely, and subsequently backed off minimally. The construct was left in position and attention was directed distally. As this was a long trochanteric nail, the jig system was removed. A perfect [place] technique was utilized. The drill was used to determine appropriate position for the skin incision. Once this was made. Soft tissues were elevated with a freer elevator down to the bone. We were then able to place the drill in appropriate position and this was passed through the medial and lateral cortex of the femur as well as through the nail. Position of this drill was confirmed in AP and lateral planes via x- ray. Depth gauge was then utilized to determine appropriate length for the distal screw. The appropriate size screw was accomplished and placed in po sition without difficulty. Once the screw was in position, we confirmed appropriate placement of the components, and we obtained final x-rays. Attention was then directed to closure. The hip was copiously irrigated with normal saline with antibiotics. Following this it was dried and closed. Tensor fascia tonie was closed proximally with 0 Vicryl in an interrupted fashion. Local anesthetic was administered. Subcutaneous tissues were closed with 2-0 Monocryl, and the skin was closed with a continuous 3-0 Monocryl subcuticular suture. This was then covered with Dermabond, Steri-Strips, and OpSite. The patient was removed from the fracture table and returned to recovery in satisfactory condition. The patient will be discharged to the floor for postoperative rehabilitation and pain management. There were no specimens obtained. Related Problem List Diagnoses (1) Closed intertrochanteric fracture of right hip: (2) Fracture, subtrochanteric, right femur, closed:
--- NOTE | 2023-03-16 14:48 | PM.PN ---
Subjective Subjective: No acute events overnight. Today morning seen postoperatively. Patient is doing well. Pain is well controlled. Awake and alert saturating well on 2 L of nasal cannula. Seen with at bedside. Patient is in good spirits. Denies any nausea vomiting, headache. Blood work appreciated for a stable CMP, CBC showing resolution of leukocytosis with hemoglobin down to 11.1 from 12 yesterday, UA negative for nitrite 1+ leukoesterase positive. Vitals/I&O/Wt Last Vital Signs Temp 98.5 F 03/16/23 11:30 Pulse 62 03/16/23 11:30 Resp 19 H 03/16/23 11:30 BP 130/52 03/16/23 11:30 Pulse Ox 97 03/16/23 11:30 O2 Del Method Nasal Cannula 03/16/23 11:30 O2 Flow Rate 2 03/16/23 11:30 03/15/23 03/16/23 03/16/23 22:59 06:59 14:59 Intake Total 650 / 1130 0 / 1130 1240 / 1240 Output Total 1050 / 1050 350 / 1400 1020 / 1020 Balance -400 / 80 -350 / -270 220 / 220 Weight last 48 hrs Weight 54.25 kg Weight 80.739 kg Physical Exam Narrative: General: Patient is awake and alert. Very pleasant. Head: Normocephalic. Atraumatic. EOM intact. Neck: No JVD. Cardiovascular: Regular rate. Hypertensive. No gallops. No murmurs. Lungs: Clear to auscultation, no use of accessory muscles, no crackles or wheezes. Skin: No jaundice. No rashes. Abdomen: Normal bowel sounds, abdomen soft and nontender. Extremities: No cyanosis or clubbing. Right lower extremity hip surgically bandaged. Without any soakage. Musculoskeletal: Normal muscular development. Neurological: Moves all 4 extremities. No myoclonus. Urinary Catheter Management: Cates: Cath Placed During This Visit: yes Reason for Continuing Indwelling Catheter: Other Urinary Catheter Date of Insertion: 03/14/23 Urinary Catheter Time of Insertion: 21:34 Data 03/16/23 04:27 03/16/23 04:27 A&P Assessment and plan (1) Hip pain: Insetting of right femur fracture. Orthopedics consulted. Plan for ORIF. N.p.o. after midnight. Holding off on surgery today given patient being on Xarelto. PT/pain management/anticoagulation as per surgical team. Monitor hemoglobin. Postoperatively early ambulation. (2) Fracture of proximal end of right femur: (3) Hypertension: Goal blood pressure less than 140/90 mmHg. Continue home antihypertensives including amlodipine, metoprolol, ARB. Uptitrate as per goal blood pressure. Qualifiers: Hypertension type: primary hypertension Qualified Code(s): I10 - Essential (primary) hypertension (4) Lumbar back pain: Analgesics as needed (5) Atrial fibrillation: Post ablation. Rate controlled. Continue home metoprolol Hold Xarelto for possible surgery Qualifiers: Atrial fibrillation type: longstanding persistent Qualified Code(s): I48.11 - Longstanding persistent atrial fibrillation (6) CKD (chronic kidney disease): Creatinine at baseline. Medical reconciliation done. Monitor BMP daily. (7) Pacemaker: Plan Leukocytosis: Patient denies any difficulty in breathing. Complains of mild dysuria. Check urinalysis. Empirically start on IV ceftriaxone 1 g daily for now. Could be secondary to dehydration. Start on normal saline at 50 cc/h for 1 bag. DVT prophylaxis: SCD CODE STATUS: Full code Cardiac diet, n.p.o. after midnight. Discharge planning: Discussed in detail with patient regarding home with home health versus discharge to SNF given need for physical therapy on discharge. Patient will try to discharge home if possible with home health. We will make further decisions postoperatively. Plan for the day: Postoperative day 0. Pain medication as per orthopedic team. Anticoagulation with Xarelto to be started tomorrow. Monitor hemoglobin. Physical therapy from a.m. Continue with chronic home medications including antihypertensives. Goal blood pressure less than 140/90 mmHg. Follow-up urine culture. For now continue with IV ceftriaxone. Attestations Medical Necessity Statement*: Requires further hospitalization for postoperative care for ORIF given right proximal and femur fracture Diagnoses Hip pain M25.559 Fracture of proximal end of right femur S72.001A Hypertension I10 Hypertension type: primary hypertension Lumbar back pain M54.50 Atrial fibrillation I48.11 Atrial fibrillation type: longstanding persistent CKD (chronic kidney disease) N18.9 Pacemaker Z95.0
[2023-03-16] MEDS: acetaminophen 500 mg Tablet 1000 MG PO ×2 (15:28→23:38)
[2023-03-16] MEDS: oxyCODONE 5 mg IR Tab/Cap PO (15:33)
--- NOTE | 2023-03-16 16:13 | ANE.PACU2 ---
Inpatient post-anesthesia follow up: Airway intact: Yes Vital signs: Temperature 98.5 F Pulse Rate 78 Respiratory Rate 18 Blood Pressure 130/52 Pulse Oximetry 97 Oxygen Delivery Me thod Room Air Oxygen Flow Rate 2 Fraction of Inspir ed Oxygen Hydration adequate: Yes Nausea and vomiting: No Pain level: 2 Mental status: Baseline
[2023-03-16] MEDS: docusate sodium 100 mg Capsule PO (18:34)
[2023-03-16] MEDS: cefTRIAXone 1,000 MG in sodium chloride 0.9% (plus) 50 ML 100 MG IV (18:35)
[2023-03-16] MEDS: CELEcoxib 200 mg Capsule PO (18:35)
[2023-03-16] MEDS: metoprolol succinate ER (24 HR) 25 mg Tablet PO (20:02)
[2023-03-16] MEDS: atorvastatin 40 mg Tablet 80 MG PO (20:02)
[2023-03-17 04:11] VITALS: BP 167/71; PULSE 62; RESP 17; TEMP 36.8; O2SAT 95
[2023-03-17 05:13] LABS: Basophils % 0.1 %; Hematocrit 30.9 % (36-47); Lymphocytes # 0.5 10^3/uL (0.8-4.8); Lymphocytes % 5.5 %; Mean Corpuscular HGB Conc 33.3 g/dL (30-55); Mean Corpuscular Hemoglobin 28.4 pg (27-33); Mean Corpuscular Volume 85.1 fl (85-98); Mean Platelet Volume 9.3 fL (7.4-10.4); Monocytes # 0.6 10^3/uL (0.2-0.9); Monocytes % 7.2 %; Neutrophils # 7.06 10^3/uL (1.8-7.7); Neutrophils % 86.7 %; Nucleated Red Blood Cells % 0 %; Platelet Count 129 10^3/cmm (157-399); Red Blood Count 3.63 10^6/uL (3.85-5.65); Red Cell Distribution Width 13.2 % (12.1-15.1); White Blood Count 8.15 10^3/uL (3.29-11.43)
[2023-03-17 05:27] VITALS: BP 179/77
[2023-03-17] MEDS: losartan 50 mg Tablet 100 MG PO (05:27)
[2023-03-17 05:34] LABS: Alanine Aminotransferase 105 U/L (0-33); Albumin Level 3.5 g/dL (3.5-5.2); Alkaline Phosphatase 100 U/L (35-105); Anion Gap 13.5 (5-19); Aspartate Amino Transferase 106 U/L (0-32); Blood Urea Nitrogen 23 mg/dL (8-23); Calcium 8.7 mg/dL (8.5-10.5); Carbon Dioxide 25 mmol/L (22-29); Chloride 105 mmol/L (98-107); Globulin 2.2 g/dL (1.3-4.6); Glucose 150 mg/dL (65-115); Osmolality Calculated 295 mOsm/kg (285-295); Potassium 4.5 mmol/L (3.5-5.1); Sodium 139 mmol/L (136-145); Total Bilirubin 0.4 mg/dL (0.15-1.2); Total Protein 5.7 g/dL (6.6-8.7)
[2023-03-17] MEDS: ceFAZolin 2,000 MG in sodium chloride 0.9% (plus) 50 ML 100 MG IV (07:20)
[2023-03-17] MEDS: acetaminophen 500 mg Tablet 1000 MG PO ×2 (07:21→14:27)
[2023-03-17 08:00] VITALS: BP 188/84; PULSE 68; RESP 18; TEMP 36.3; O2SAT 95
[2023-03-17] MEDS: gabapentin 100 mg Capsule PO (08:18)
[2023-03-17] MEDS: docusate sodium 100 mg Capsule PO (08:18)
[2023-03-17] MEDS: cholecalciferol (vitamin D3) 5,000 unit Tablet 5000 UNIT PO (08:18)
[2023-03-17] MEDS: amlodipine 5 mg Tablet PO (08:19)
[2023-03-17] MEDS: pantoprazole DR 40 mg Tablet PO (08:19)
[2023-03-17] MEDS: CELEcoxib 200 mg Capsule PO (08:19)
[2023-03-17] MEDS: oxyCODONE 5 mg IR Tab/Cap PO (08:20)
--- NOTE | 2023-03-17 09:19 | PC.SOCIAL ---
IMM Update Pg. 2 of IMM updated and reviewed with patient who verbalized understanding. Copy provided to patient and copy placed in chart.
[2023-03-17 09:42] VITALS: PULSE 69; RESP 18; O2SAT 95
--- NOTE | 2023-03-17 11:00 | P.DS_ITS ---
Discharge Providers Date of Admission: 03/14/23 20:15 Date of Discharge: March 17, 2023 Attending Provider at Admission: Juan R Can MD Attending Provider at Discharge: Juan Reynolds MD Consults: Orthopedics: Dr. López Primary Care Provider: Eh Britt DO Diagnoses at Discharge Discharge Diagnosis (1) Hip pain: Status: Acute (2) Fracture of proximal end of right femur: Status: Acute (3) Hypertension: Status: Acute Qualifiers: Hypertension type: primary hypertension Qualified Code(s): I10 - Essential (primary) hypertension (4) Lumbar back pain: Status: Acute (5) Atrial fibrillation: Status: Acute Qualifiers: Atrial fibrillation type: longstanding persistent Qualified Code(s): I48.11 - Longstanding persistent atrial fibrillation (6) CKD (chronic kidney disease): Status: Acute (7) Pacemaker: Status: Acute Reason for Visit Reason for Visit: Fall Brief History: History as per HPI: Gabbie Flores is a 82 year old female with a past medical history significant for hypertension, atrial fibrillation, and hyperlipidemia who presents to the emergency department with a mechanical fall that happened prior to arrival.? Patient states she was sitting down when she went to stand up she caught her right foot and fell.? She states that she fell onto the hardwood floor hitting her right hip.? She states that she developed severe right hip pain following that.? She received fentanyl by EMS which she states significantly improved the pain.? She states the pain is now getting worse as that wears off.? She reports movement worsens the pain.? Rest improves it.? Denies prior broken bones or fractures.? is bedside and very pleasant and supportive. Patient does have a history of atrial fibrillation and is prescribed Xarelto.? She states that she had held that for a week besides yesterday's dose for a procedure done by Dr. Alexander. Hospital Course Hospital Course Patient was admitted to the hospital further evaluation and management. Orthopedics was consulted. She underwent ORIF of right proximal femur on 03/16. She tolerated the procedure well. Her hospitalization was otherwise unremarkable. Safe discharge plan was discussed in detail with the patient and patient's family members with options being discharged to SNF for rehabilitation versus home with home health and they were agreeable for discharge to home with home health. She has been discharged to home with home health for further rehabitation with advised to follow-up with orthopedics on set appointment. Physical Exam Narrative: General: Patient is awake and alert. Very pleasant. Head: Normocephalic. Atraumatic. EOM intact. Neck: No JVD. Cardiovascular: Regular rate. Hypertensive. No gallops. No murmurs. Lungs: Clear to auscultation, no use of accessory muscles, no crackles or wheezes. Skin: No jaundice. No rashes. Abdomen: Normal bowel sounds, abdomen soft and nontender. Extremities: No cyanosis or clubbing. Right lower extremity hip surgically bandaged. Without any soakage. Musculoskeletal: Normal muscular development. Neurological: Moves all 4 extremities. No myoclonus. Urinary Catheter Management: Cates: Cath Placed During This Visit: yes, but has since been removed by the nurse Reason for Continuing Indwelling Catheter: Decision to DC Catheter Urinary Catheter Date of Insertion: 03/14/23 Urinary Catheter Time of Insertion: 21:34 Date Urinary Catheter Removed: 03/17/23 Time Urinary Catheter Discontinued: 05:38 Discharge Data Studies Completed and Pending Completed Studies During Hospitalization Category Date Time Status CT hip RT wo con* [id number] Stat Cat Scan 03/14/23 18:40 Completed XR chest 1V portable [id number] Stat Exams 03/14/23 18:01 Completed XR femur RT min 2V* [id number] Routine Exams 03/16/23 Completed XR hip RT 2-3V wo/w pel* [id number] Stat Exams 03/14/23 17:43 Completed Pending at discharge Category Date Time Status Urine Culture Routine Lab 03/16/23 01:32 Results Radiology Impressions Hip/Pelvis X-Ray 03/14/23 17:43 IMPRESSION: Mildly displaced and angulated comminuted right proximal femur fracture. Chest X-Ray 03/14/23 18:01 IMPRESSION: No acute cardiopulmonary findings. Hip CT 03/14/23 18:40 IMPRESSION: Mildly displaced and angulated comminuted right proximal femur fracture. Laboratory Results WBC 8.15 10^3/uL (3.29-11.43) 03/17/23 05:00 RBC 3.63 10^6/uL (3.85-5.65) L 03/17/23 05:00 Hgb 10.30 g/dL (11.27-16.99) L 03/17/23 05:00 Hct 30.9 % (36-47) L 03/17/23 05:00 MCV 85.1 fl (85-98) 03/17/23 05:00 MCH 28.4 pg (27-33) 03/17/23 05:00 MCHC 33.3 g/dL (30-55) 03/17/23 05:00 RDW 13.2 % (12.1-15.1) 03/17/23 05:00 Plt Count 129 10^3/cmm (157-399) L 03/17/23 05:00 MPV 9.3 fL (7.4-10.4) 03/17/23 05:00 Neut % (Auto) 86.7 % 03/17/23 05:00 Lymph % (Auto) 5.5 % 03/17/23 05:00 [place] % (Auto) 7.2 % 03/17/23 05:00 Eos % (Auto) 0.0 % 03/17/23 05:00 Baso % (Auto) 0.1 % 03/17/23 05:00 Neut # (Auto) 7.06 10^3/uL (1.8-7.7) 03/17/23 05:00 Lymph # (Auto) 0.5 10^3/uL (0.8-4.8) L 03/17/23 05:00 [place] # (Auto) 0.6 10^3/uL (0.2-0.9) 03/17/23 05:00 Eos # (Auto) 0.0 10^3/uL (0.0-0.8) 03/17/23 05:00 Baso # (Auto) 0.0 10^3/uL (0.0-0.1) 03/17/23 05:00 Nucleated RBC % (auto) 0 % 03/17/23 05:00 Nucleated RBCs # 0.0 /100WBC 03/17/23 05:00 Sodium 139 mmol/L (136-145) 03/17/23 05:00 Potassium 4.5 mmol/L (3.5-5.1) 03/17/23 05:00 Chloride 105 mmol/L (98-107) 03/17/23 05:00 Carbon Dioxide 25 mmol/L (22-29) 03/17/23 05:00 Anion Gap 13.5 (5-19) 03/17/23 05:00 BUN 23 mg/dL (8-23) 03/17/23 05:00 Creatinine 0.9 mg/dL (0.5-0.9) 03/17/23 05:00 GFR Calculation Not Reportable 03/17/23 05:00 Glucose 150 mg/dL (65-115) H 03/17/23 05:00 Estimat Average Glucose 103 03/16/23 04:27 Hemoglobin A1c 5.2 % (4.0-6.0) 03/16/23 04:27 Calculated Osmolality 295 mOsm/kg (285-295) 03/17/23 05:00 Calcium 8.7 mg/dL (8.5-10.5) 03/17/23 05:00 Phosphorus 3.0 mg/dL (2.5-4.5) 03/14/23 18:47 Magnesium 2.1 mg/dL (1.7-2.3) 03/14/23 18:47 Iron 38 ug/dL (37-145) 03/14/23 18:47 TIBC 322 mcg/dl 03/14/23 18:47 % Saturation 11.8 % (20-50) L 03/14/23 18:47 Unsat Iron Binding 284 ug/dL (112-347) 03/14/23 18:47 Total Bilirubin 0.4 mg/dL (0.15-1.2) 03/17/23 05:00 AST 106 U/L (0-32) H 03/17/23 05:00 ALT 105 U/L (0-33) H 03/17/23 05:00 Alkaline Phosphatase 100 U/L (35-105) 03/17/23 05:00 Total Protein 5.7 g/dL (6.6-8.7) L 03/17/23 05:00 Albumin 3.5 g/dL (3.5-5.2) 03/17/23 05:00 Globulin 2.2 g/dL (1.3-4.6) 03/17/23 05:00 Vitamin B12 833 pg/mL (232-1245) 03/14/23 18:47 Folate > 20.0 ng/mL (4.8-37.3) 03/16/23 04:27 Urine Color Yellow (Yellow) 03/16/23 01:32 Urine Appearance Sl hazy (CLEAR) A 03/16/23 01:32 Urine pH 5 (5-7) 03/16/23 01:32 Ur Specific [place] 1.015 (1.005-1.030) 03/16/23 01:32 Urine Protein Neg (Negative) 03/16/23 01:32 Urine Glucose (UA) Norm (Normal) 03/16/23 01:32 Urine Ketones Negative (Negative) 03/16/23 01:32 Urine Blood 2+ (Negative) H 03/16/23 01:32 Urine Nitrate Negative (Negative) 03/16/23 01:32 Urine Bilirubin Neg (Negative) 03/16/23 01:32 Urine Urobilinogen Neg mg/dL (Negative) 03/16/23 01:32 Ur Leukocyte Esterase 1+ (Negative) H 03/16/23 01:32 Urine RBC 5-10 /hpf (0-2) H 03/16/23 01:32 Urine WBC 5-10 /hpf (0-5) H 03/16/23 01:32 Ur Squamous Epith Cells None /hpf (0-5) 03/16/23 01:32 Amorphous Sediment Not Reportable 03/16/23 01:32 Urine Bacteria 1+ /hpf (NONE) H 03/16/23 01:32 Urine Yeast Trace /hpf 03/16/23 01:32 Vitals Last Vital Signs Temp 97.4 F L 03/17/23 08:00 Pulse 69 03/17/23 09:42 Resp 18 03/17/23 09:42 BP 188/84 03/17/23 08:00 Pulse Ox 95 03/17/23 09:42 O2 Del Method Room Air 03/17/23 09:42 O2 Flow Rate 2 03/16/23 14:30 Discharge Plan Discharge Patient Disposition: Home Health Service Condition: Stable Prescriptions: New acetaminophen 500 mg Tablet 1,000 mg PO Q8H 15 Days Qty: 90 0RF oxycodone 5 mg Tablet 5 mg PO Q6H PRN (Reason: SEVERE PAIN PO 1ST) 7 Days Qty: 30 0RF Continued nitroglycerin 0.4 mg/hr patch 24 hour See Rx Instructions .ROUTE .COMPLEX Qty: 30 11RF Dose Instruction: APPLY 1 PATCH TRANSDERMALLY DAILY. ALLOW NITRATE FREE INTERVAL OF APPROXIMATELY 10 TO 12 HOURS PER 24 HOUR PERIOD Rx Instructions: APPLY 1 PATCH TRANSDERMALLY DAILY. ALLOW NITRATE FREE INTERVAL OF APPROXIMATELY 10 TO 12 HOURS PER 24 HOUR PERIOD lidocaine 5 % adhesive patch,medicated See Rx Instructions .ROUTE .COMPLEX Qty: 30 11RF Dose Instruction: APPLY 1 PATCH TOPICALLY DAILY. LEAVE ON MOST PAINFUL AREA FOR UP TO 12 HOURS Rx Instructions: APPLY 1 PATCH TOPICALLY DAILY. LEAVE ON MOST PAINFUL AREA FOR UP TO 12 HOURS THEN OFF FOR 12 HOURS Centrum Silver Women 8 mg iron-400 mcg-300 mcg tablet 1 tab PO QAM melatonin 3 mg tablet 6 mg PO BEDTIME cholecalciferol (vitamin D3) [Vitamin D3] 125 mcg (5,000 unit) tablet 125 mcg PO QAM albuterol sulfate [ProAir HFA] 90 mcg/actuation HFA aerosol inhaler 1 puff inhalation Q6H PRN (Reason: shortness of breath or wheezing) Qty: 8.5 3RF benzonatate 100 mg capsule 100 mg PO TID PRN (Reason: Cough) pantoprazole 40 mg tablet,delayed release (DR/EC) 40 mg PO BEDTIME Premarin 0.625 mg/gram cream See Rx Instructions .ROUTE .COMPLEX Rx Instructions: 0.625MG VAGINAL DAILY PRN (OFF 5 DAYS AND REPEAT CYCLE) gabapentin 100 mg capsule 100 mg PO QAM metoprolol succinate 25 mg tablet extended release 24 hr 25 mg PO BEDTIME diclofenac sodium 1 % Gel 2 g TOPICAL QID PRN (Reason: Pain) Rx Instructions: apply to single elbow, wrist or hand; for hand includes palm/fingers/back of hand Xarelto 20 mg tablet 20 mg PO BEDTIME valsartan 320 mg tablet 320 mg PO QAM rosuvastatin 20 mg tablet 20 mg PO BEDTIME Changed amlodipine 5 mg tablet 10 mg PO QAM Qty: 60 0RF Discharge Orders: Discharge Order (Routine); Ordered 03/17/23 Ordered By: Juan Reynolds Other Ambulatory Orders: DME: Eugene (Order) Location: None Selected Ordered By: Juan Reynolds Referrals: [facility] [Outside] [facility] Home Care ([facility]) [Outside] Eh Britt, DO [Primary Care Provider] - (We have notified your physician's clinic of the need for a follow-up appointment to be scheduled. If you have not heard from them within the next 2 business days, please call them directly. You may also reach out to our esthetician and manager medical spa at [phone] and she can assist you.) Marichuy López MD [Physician] - 04/03/23 1:00 pm () Discharge Diet: Cardiac Discharge Activity: Resume usual activity, Increase activity as tolerated, Limit activity as instructed, Use walker/crutches as instructed and As per PT/OT instructions Patient Instructions: Oxycodone, Rapid Release (By mouth) (ETH-Oxydose, Oxy IR,..., ORIF of Hip Fracture (DC), Opioid Safety, Post Anesthesia Care Activity Restrictions/Additional Instructions: Please follow-up with orthopedics as directed. Dose of amlodipine has been increased to 10 mg daily. Please check your blood pressure daily at home and maintain a blood pressure diary and follow-up with a primary care provider onsite appointment for further adjustment of antihyperte nsives. Please work with physical therapy and increase activity as possible. Please continue to use walker as directed. Follow-up in 2 to 3 weeks. You will have an appointment prior to leaving today. Ice to right hip as needed. Dressings can remain in place until they come off on their own. Discharge Attestations Time Spent in Discharge Care*: greater than 30 min Specific Discharge Activities: educating patient, educating and/or supporting family/caregiver, discussing with pcp/other providers, discussing with field case manager/social workers/dc planners, documenting/other paperwork and evaluating patient/reviewing data Status at Discharge: Cognitive status at discharge: cognitively intact , Behavioral status at discharge: cooperative , Functional status at discharge: uses cane/walker , Overall status at discharge: patient is back to baseline Quality Metrics Clinical Quality Measures [ No reported AMI, CVA or VTE this stay] Coding Level of Care Code 49214 Total time (in minutes) for Discharge: 60 Diagnoses Hip pain M25.559 Fracture of proximal end of right femur S72.001A Hypertension I10 Hypertension type: primary hypertension Lumbar back pain M54.50 Atrial fibrillation I48.11 Atrial fibrillation type: longstanding persistent CKD (chronic kidney disease) N18.9 Pacemaker Z95.0
[2023-03-17 12:00] VITALS: BP 170/71; PULSE 61; RESP 18; TEMP 36.8; O2SAT 96
--- NOTE | 2023-03-17 13:36 | P.PN_ITS ---
Subjective Subjective: Patient had a successful open reduction internal fixation of her subtrochanteric fracture which extended into the intertrochanteric and greater trochanteric areas. She has been up with physical therapy and has done very well. She would like to be discharged home for home physical therapy. Medications: Reviewed: Yes Vitals/I&O/Wt Last Vital Signs Temp 97.4 F L 03/17/23 08:00 Pulse 69 03/17/23 09:42 Resp 18 03/17/23 09:42 BP 188/84 03/17/23 08:00 Pulse Ox 95 03/17/23 09:42 O2 Del Method Room Air 03/17/23 09:42 O2 Flow Rate 2 03/17/23 08:00 03/16/23 03/17/23 03/17/23 22:59 06:59 14:59 Intake Total 1440 / 2680 50 / 2730 50 / 50 Output Total 1200 / 2220 200 / 200 Balance 1440 / 1660 -1150 / 510 -150 / -150 Weight last 48 hrs Weight 129 lb 6 oz Physical Exam Const: COMMON NORMALS: no acute distress, average body habitus, patient oriented x3 and alert GENERAL APPEARANCE: cooperative and comfortable ORIENTATION/CONSCIOUSNESS: Yes awake HENMT: COMMON NORMALS: normocephalic and atraumatic HEAD & SCALP: normocephalic and atraumatic Eye: GENERAL EYE: appearance normal, both eyes and all related structures Chest: COMMONS NORMALS: normal inspection of the chest Resp: COMMON NORMALS: normal respiratory effort EFFORT & INSPECTION: Yes able to speak in complete sentences and Yes symmetric chest movement Extremity: RIGHT LOWER EXTREMITY: Yes hip joint (Dressing is dry and intact.) Right hip: Yes inspection (Minimal to no swelling.), Yes ROM (Not evaluated.) and Yes neurovascular exam (Intact distally with no evidence of DVT) Neuro: COMMON NORMALS: patient oriented x3 SENSORIUM/ORIENTATION: Yes alert Psych: COMMON NORMALS: mental status grossly normal APPEARANCE: Yes grossly normal ATTITUDE: Yes calm and Yes engaged ATTENTION/CONCENTRATION: Yes attention grossly intact Skin: COMMON NORMALS: no rashes or lesions noted GENERAL SKIN EXAM: no rashes or lesions noted Urinary Catheter Management: Cates: Cath Placed During This Visit: yes, but has since been removed by the nurse Reason for Continuing Indwelling Catheter: Decision to DC Catheter Urinary Catheter Date of Insertion: 03/14/23 Urinary Catheter Time of Insertion: 21:34 Date Urinary Catheter Removed: 03/17/23 Time Urinary Catheter Discontinued: 05:38 Data 03/17/23 05:00 03/17/23 05:00 Micro: Microbiology 03/16/23 01:32 Urine Culture - Preliminary Urine,Clean Catch A&P Assessment and plan (1) Fracture, subtrochanteric, right femur, closed: Patient has a comminuted proximal femur fracture involving the subtrochanteric area as well as the greater trochanter and intertrochanteric areas. Yesterday, she underwent open reduction internal fixation with a long trochanteric nail which was well-tolerated. The patient has been up and ambulating with physical therapy. Plans are made for discharge home today with home health. She is seen and questions were answered. She has had no complications. She will be discharged home to follow-up with me in the office in approximately 2 to 3 weeks. Qualifiers: Encounter type: initial encounter Fracture alignment: displaced Qualified Code(s): S72.21XA - Displaced subtrochanteric fracture of right femur, initial encounter for closed fracture (2) Closed intertrochanteric fracture of right hip: Qualifiers: Encounter type: initial encounter Fracture alignment: displaced Qualified Code(s): S72.141A - Displaced intertrochanteric fracture of right femur, initial encounter for closed fracture Attestations Medical Necessity Statement*: Patient will be discharged home with home health. Coding Level of Care Code Acute Code for [facility] Diagnoses Fracture, subtrochanteric, right femur, closed S72.21XA Encounter type: initial encounter Fracture alignment: displaced Closed intertrochanteric fracture of right hip S72.141A Encounter type: initial encounter Fracture alignment: displaced
[2023-03-17 14:41] VITALS: BP 170/71; PULSE 61; RESP 18; TEMP 36.8; O2SAT 96
--- NOTE | 2023-03-17 14:41 | PC.NURSE ---
Discharge Note Patient discharged to home via private vehicle accompanied by . Discharge instructions reviewed with patient and/or training representative. Mobile pharmacy medications and/or prescriptions provided. Belongings/home medications returned.
== END 2023-03-17 14:42 | disposition home health service (06) | DRG 481 ==
LOC: ER 17:49 → MEDSURG 20:15
PROVIDERS: Specialist; Admitting Provider Internal Medicine; Emergency Provider Nurse Practitioner Family; PCP Family Medicine; Visit Provider Student in an Organized Health Care Education/Training Program
PROC: 0QH636Z Insertion of Intramedullary Internal Fixation Device into Right Upper Femur, Percutaneous Approach (ICD-10-PCS; CPT 27245; principal; 2023-03-16 07:00)
DX: S72.141A Displaced intertrochanteric fracture of right femur, initial encounter for closed fracture (principal); I48.11 Longstanding persistent atrial fibrillation; N17.9 Acute kidney failure, unspecified; S72.21XA Displaced subtrochanteric fracture of right femur, initial encounter for closed fracture; W01.0XXA Fall on same level from slipping, tripping and stumbling without subsequent striking against object, initial encounter; I12.9 Hypertensive chronic kidney disease with stage 1 through stage 4 chronic kidney disease, or unspecified chronic kidney disease; E78.5 Hyperlipidemia, unspecified; M48.061 Spinal stenosis, lumbar region without neurogenic claudication; Z95.0 Presence of cardiac pacemaker; I70.1 Atherosclerosis of renal artery; E86.0 Dehydration; Z79.01 Long term (current) use of anticoagulants
CPT/HCPCS: 36415; 51702; 71045; 73502; 73552; 73700; 76000; 80053; 81001; 82607; 82746; 83036; 83540; 83550; 83735; 84100; 85025; 87086; 93005; 96365; 97110; 97116; 97161; 97165; 99285; C1713; J0131; J0690; J0696; J1100; J2405; J2704; J3010; J3490; J7030

== ENCOUNTER → 2023-04-03 12:55 | Outpatient (BNVA) | payer MEDICARE, OTHER, SELFPAY | PROVIDERS: PCP Family Medicine; Visit Provider Specialist | DX: S72.141A Displaced intertrochanteric fracture of right femur, initial encounter for closed fracture (principal); S72.21XA Displaced subtrochanteric fracture of right femur, initial encounter for closed fracture; X58.XXXA Exposure to other specified factors, initial encounter; M17.0 Bilateral primary osteoarthritis of knee | CPT/HCPCS: 73502; 99024 ==

== ENCOUNTER 2023-04-25 06:00 | Outpatient (RCR) | payer MEDICARE, OTHER, SELFPAY | END 2023-05-23 23:59 | disposition home or self-care (01) | LOC: TPT 06:00 | PROVIDERS: Visit Provider Specialist | DX: S72.001D Fracture of unspecified part of neck of right femur, subsequent encounter for closed fracture with routine healing (principal); X58.XXXD Exposure to other specified factors, subsequent encounter | CPT/HCPCS: 97110; 97116; 97163 ==

== ENCOUNTER → 2023-05-04 09:48 | Outpatient (BNVA) | payer MEDICARE, OTHER, SELFPAY | PROVIDERS: Visit Provider Family Medicine | DX: M25.551 Pain in right hip (principal); N18.9 Chronic kidney disease, unspecified; D50.0 Iron deficiency anemia secondary to blood loss (chronic); R79.89 Other specified abnormal findings of blood chemistry; I12.9 Hypertensive chronic kidney disease with stage 1 through stage 4 chronic kidney disease, or unspecified chronic kidney disease | CPT/HCPCS: 80053; 85027 ==

== ENCOUNTER → 2023-05-22 09:58 | Outpatient (BNVA) | payer MEDICARE, OTHER, SELFPAY | PROVIDERS: Visit Provider Nurse Practitioner | DX: M17.0 Bilateral primary osteoarthritis of knee | CPT/HCPCS: 20610; 73560; 73565; 99214; J7327 ==

== ENCOUNTER 2023-05-24 06:00 | Outpatient (RCR) | payer MEDICARE, OTHER, SELFPAY | END 2023-06-22 23:59 | disposition home or self-care (01) | LOC: TPT 06:00 | PROVIDERS: Visit Provider Specialist | DX: Z98.890 Other specified postprocedural states (principal) | CPT/HCPCS: 97110; 97116 ==

== ENCOUNTER → 2023-06-05 12:53 | Outpatient (BNVA) | payer MEDICARE, OTHER, SELFPAY | PROVIDERS: Visit Provider Specialist | DX: M17.0 Bilateral primary osteoarthritis of knee (principal); S72.001D Fracture of unspecified part of neck of right femur, subsequent encounter for closed fracture with routine healing; X58.XXXD Exposure to other specified factors, subsequent encounter | CPT/HCPCS: 73502; 99024 ==

== ENCOUNTER 2023-07-10 09:51 | Outpatient (CLI) | payer MEDICARE, OTHER, SELFPAY ==
--- NOTE | 2023-07-10 09:56 | MM_ITS ---
WS: [id number] BILATERAL SCREENING DIGITAL TOMOSYNTHESIS MAMMOGRAM WITH CAD HISTORY: SCREENING COMPARISON: 07/06/2022, 07/05/2021 Bilateral CC and MLO views with tomosynthesis and synthetic mammography submitted. Computer aided det ection analyzed. Breast composition: There are scattered areas of fibroglandular density. No suspicious masses, microc alcifications or architectural distortion. IMPRESSION: MM/[place] [id number] BI-RADS: 1-Negative FOLLOW UP: 1 Year Follow-up
== END 2023-07-10 09:52 | disposition home or self-care (01) ==
PROVIDERS: Visit Provider Family Medicine
DX: Z12.31 Encounter for screening mammogram for malignant neoplasm of breast (principal)
CPT/HCPCS: 77063; 77067

== ENCOUNTER → 2023-11-01 10:50 | Outpatient (BNVA) | payer MEDICARE, OTHER, SELFPAY | PROVIDERS: PCP Family Medicine; Visit Provider Family Medicine | DX: I12.9 Hypertensive chronic kidney disease with stage 1 through stage 4 chronic kidney disease, or unspecified chronic kidney disease (principal); N18.9 Chronic kidney disease, unspecified; R79.89 Other specified abnormal findings of blood chemistry; M79.89 Other specified soft tissue disorders; E03.9 Hypothyroidism, unspecified | CPT/HCPCS: 81003; 82043; 85025 ==

== ENCOUNTER → 2023-11-21 10:45 | Outpatient (BNVA) | payer MEDICARE, OTHER, SELFPAY | PROVIDERS: PCP Family Medicine; Visit Provider Family Medicine | DX: E03.9 Hypothyroidism, unspecified (principal); R31.9 Hematuria, unspecified; I12.9 Hypertensive chronic kidney disease with stage 1 through stage 4 chronic kidney disease, or unspecified chronic kidney disease; N18.9 Chronic kidney disease, unspecified | CPT/HCPCS: 80053; 80061; 81003; 82306; 83735; 84439; 84443 ==

== ENCOUNTER 2023-12-01 16:06 | Outpatient (CLI) | payer MEDICARE, OTHER, SELFPAY ==
--- NOTE | 2023-12-01 16:08 | CTR_ITS ---
PROCEDURE INFORMATION: Exam: CT Lumbar Spine Without Contrast Exam date and time: 12/01/2023 4:10 PM Age: 83 years old Clinical indication: Low back pain; Additional info: Lumbar back pain TECHNIQUE: Imaging protocol: Computed tomography of the lumbar spine without contrast. Radiation optimization: All CT scans at this facility use at least one of these dose optimization techniques: automated exposure control; mA and/or kV adjustment per patient size (includes targeted exams where dose is matched to clinical indication); or iterative reconstruction. COMPARISON: CT hip RT wo con* [id number] 03/14/2023 7:29 PM RADIATION DOSE METRICS: Total DLP (mGy-cm): 604 FINDINGS: Bones/joints: Mild anterolisthesis L3-L4. No fracture. Diffuse degenerative disc disease and facet arthropathy. There is mild stenosis L2-L3 and moderate stenosis at L3-L4 and L4-L5. No severe neural foraminal narrowing. Soft tissues: Unremarkable. CT/CT lumbar spine wo con* [id number] IMPRESSION: Diffuse degenerative disc disease and facet arthropathy. There is mild stenosis L2-L3 and moderate stenosis at L3-L4 and L4-L5.
--- NOTE | 2023-12-01 16:30 | USR_ITS ---
PROCEDURE INFORMATION: Exam: US Retroperitoneal; Complete; Kidneys and Bladder Exam date and time: 12/01/2023 4:29 PM Age: 83 years old Clinical indication: Abnormal findings; Abnormal lab test; Other: Hematuria; Additional info: Ckd, hematuria. TECHNIQUE: Imaging protocol: Real-time ultrasound of the retroperitoneum with image documentation. Complete exam focused on the kidneys and bladder. COMPARISON: US abdomen complete* [id number] 10/20/2017 9:04 AM FINDINGS: Right kidney: The right kidney measures 9.2 x 3.6 x 4.3 cm. No mass or hydronephrosis. No cortical thinning. Left kidney: The left kidney measures 8.1 x 3.8 x 2.7 cm. No mass or hydronephrosis. No cortical thinning. Urinary bladder: The bladder is not well filled but no gross abnormality is seen. US/US renal BI* [id number] IMPRESSION: No acute findings.
== END 2023-12-01 16:07 | disposition home or self-care (01) ==
LOC: RAD 16:06
PROVIDERS: PCP Family Medicine; Visit Provider Family Medicine
DX: M54.50 Low back pain, unspecified (principal); R31.9 Hematuria, unspecified; N18.9 Chronic kidney disease, unspecified; M47.26 Other spondylosis with radiculopathy, lumbar region; M48.061 Spinal stenosis, lumbar region without neurogenic claudication
CPT/HCPCS: 72131; 76770

== ENCOUNTER → 2023-12-08 10:07 | Outpatient (BNVA) | payer MEDICARE, OTHER, SELFPAY | PROVIDERS: PCP Family Medicine; Visit Provider Specialist | DX: M17.0 Bilateral primary osteoarthritis of knee (principal) | CPT/HCPCS: 20610; J1100; J2795; J3301 ==

== ENCOUNTER 2024-01-30 06:00 | Outpatient (RCR) | payer MEDICARE, OTHER, SELFPAY | END 2024-02-21 23:59 | disposition home or self-care (01) | LOC: TPT 06:00 | PROVIDERS: PCP Family Medicine; Visit Provider Surgery | DX: M51.36 Other intervertebral disc degeneration, lumbar region (principal) | CPT/HCPCS: 97110; 97162 ==

== ENCOUNTER 2024-02-22 06:00 | Outpatient (RCR) | payer MEDICARE, OTHER, SELFPAY | END 2024-03-23 23:59 | disposition home or self-care (01) | LOC: TPT 06:00 | PROVIDERS: PCP Family Medicine; Visit Provider Surgery | DX: M51.36 Other intervertebral disc degeneration, lumbar region (principal) | CPT/HCPCS: 97110 ==

== ENCOUNTER → 2024-05-07 10:00 | Outpatient (BNVA) | payer MEDICARE, OTHER, SELFPAY | PROVIDERS: PCP Family Medicine; Visit Provider Family Medicine | DX: E55.9 Vitamin D deficiency, unspecified (principal); I10 Essential (primary) hypertension; I20.89 Other forms of angina pectoris; E03.9 Hypothyroidism, unspecified; N18.9 Chronic kidney disease, unspecified; M47.26 Other spondylosis with radiculopathy, lumbar region; Z23 Encounter for immunization | CPT/HCPCS: 80053; 80061; 82607; 82652; 84443; 85025 ==

== ENCOUNTER → 2024-06-13 14:01 | Outpatient (BNVA) | payer MEDICARE, OTHER, SELFPAY | PROVIDERS: PCP Family Medicine; Visit Provider Specialist | DX: M17.0 Bilateral primary osteoarthritis of knee (principal); Z71.89 Other specified counseling | CPT/HCPCS: 20610; J7327 ==

== ENCOUNTER 2024-07-12 10:06 | Outpatient (CLI) | payer MEDICARE, OTHER, SELFPAY ==
--- NOTE | 2024-07-12 10:07 | MM_ITS ---
WS: [id number] BILATERAL SCREENING DIGITAL TOMOSYNTHESIS MAMMOGRAM WITH CAD HISTORY: SCREENING COMPARISON: 07/10/2023, 07/05/2021, 07/06/2022 Bilateral CC and MLO views with tomosynthesis and synthetic mammography submitted. Computer aided det ection analyzed. Breast composition: There are scattered areas of fibroglandular density. No suspicious masses, microc alcifications or architectural distortion. MM/MM scr BI tomosynthesis [id number] IMPRESSION: BI-RADS: 2 - Benign. FOLLOW UP: 1 Year Follow-up
== END 2024-07-12 10:07 | disposition home or self-care (01) ==
LOC: RAD 10:07
PROVIDERS: PCP Family Medicine; Visit Provider Family Medicine
DX: Z12.31 Encounter for screening mammogram for malignant neoplasm of breast (principal); R92.323 Mammographic fibroglandular density, bilateral breasts
CPT/HCPCS: 77063; 77067

== ENCOUNTER 2024-10-03 17:09 | Emergency (ER) | payer MEDICARE, OTHER, SELFPAY ==
[2024-10-03 17:18] VITALS: BP 185/69; PULSE 81; RESP 17; TEMP 36.5; O2SAT 98; BMI 34.0
--- NOTE | 2024-10-03 17:24 | XRR_ITS ---
PROCEDURE INFORMATION: Exam: XR Right Shoulder Exam date and time: 10/03/2024 5:45 PM Age: 83 years old Clinical indication: Injury or trauma; Fall; Fracture, traumatic injury; Closed fracture; Humerus; Right; Additional info: Fall today, right shoulder pain after fall on it TECHNIQUE: Imaging protocol: Radiologic exam of the right shoulder. Views: 2 or more views. COMPARISON: CR XR chest 1V portable [id number] 03/14/2023 6:10 PM FINDINGS: Bones/joints: Acute mildly displaced proximal humeral fracture involving the greater tuberosity. The glenohumeral articulation is reduced. The acromioclavicular articulation is grossly intact. Soft tissues: No gross soft tissue abnormality. Partially visualized left subclavian approach dual-chamber pacemaker. XR/XR shoulder RT min 2V* [id number] IMPRESSION: 1. Acute mildly displaced proximal humeral fracture involving the greater tuberosity.
--- NOTE | 2024-10-03 17:24 | W.ED.EXTPRO ---
HPI - Extremity Problem General: Chief complaint: Extremity Injury, Upper Stated complaint: right shoulder pain-fall Time Seen by Provider: 10/03/24 17:23 History of Present Illness: 83-year-old female comes in today for complaints of injury to the right shoulder. Patient reports about 2 to 3 hours ago she was getting up out of her chair and excellently tripped over her ottoman. Since then patient has had difficulty with movement of her right shoulder and arm. Patient is guarded with movement. No obvious deformity. Related Data Home Medications ?Medication ?Instructions ?Recorded ?Confirmed cholecalciferol (vitamin D3) 125 125 mcg PO QAM 01/25/22 06/13/24 mcg (5,000 unit) tablet (Vitamin D3) melatonin 3 mg tablet 6 mg PO BEDTIME 01/25/22 06/13/24 baknchnr-omno-[id number] 8 mg-folic 400 1 tab PO QAM 01/25/22 06/13/24 mcg-K 50 mcg-lutein 300 mcg tablet (Centrum Silver Women) Previous Rx's ?Medication ?Instructions ?Recorded hyaluronate sodium, stabilized 88 4 ml intra-articular .COMPLEX #8 mL 04/03/23 mg/4 mL intra-articular syringe (Monovisc) hyaluronate sodium, stabilized 88 4 ml intra-articular ONCE #2 applic 04/24/23 mg/4 mL intra-articular syringe (Monovisc) albuterol sulfate 90 mcg/actuation 1 puff inhalation Q6H PRN 08/03/23 aerosol inhaler (ProAir HFA) shortness of breath or wheezing #8.5 grams furosemide 20 mg tablet 20 mg PO DAILY PRN edema #90 tabs 11/01/23 spironolactone 25 mg tablet 25 mg PO DAILY #90 tabs 11/01/23 nitroglycerin 0.4 mg sublingual 0.4 mg sublingual Q5M PRN chest 01/23/24 tablet (Nitrostat) pain #25 tabs ciprofloxacin 0.3 %-dexamethasone 4 drp otic (ear) BID #7.5 mL 01/31/24 0.1 % ear drops,suspension (Ciprodex) amlodipine 5 mg tablet 5 mg PO QAM #90 tabs 04/11/24 metoprolol succinate 25 mg 25 mg PO BEDTIME #90 tabs 04/11/24 tablet,extended release 24 hr pantoprazole 40 mg tablet,delayed 40 mg PO BEDTIME #90 tabs 04/11/24 release rivaroxaban 20 mg tablet (Xarelto) 20 mg PO BEDTIME #90 tabs 04/11/24 rosuvastatin 20 mg tablet 20 mg PO BEDTIME #90 tabs 04/11/24 trazodone 50 mg tablet 50 mg PO DAILY PRN insomnia 90 04/11/24 days #90 tabs valsartan 320 mg tablet 320 mg PO QAM #90 tabs 04/11/24 gabapentin 100 mg capsule See Rx Instructions .Route 06/27/24 .COMPLEX #90 caps lidocaine 5 % topical patch See Rx Instructions .Route 06/27/24 .COMPLEX #30 patches nitroglycerin 0.4 mg/hr See Rx Instructions .Route 06/27/24 transdermal 24 hour patch .COMPLEX #30 patches conjugated estrogens 0.625 mg/gram See Rx Instructions .Route 10/03/24 vaginal cream (Premarin) .COMPLEX #90 grams diclofenac sodium 1 % topical gel See Rx Instructions .Route 10/03/24 .COMPLEX #100 grams hydrocodone 5 mg-acetaminophen 325 1 tab PO Q6H PRN pain #20 tabs 10/03/24 mg tablet Allergies Allergy/AdvReac Type Severity Reaction Status Date / Time No Known Allergies Allergy Verified 10/03/24 11:02 Review of Systems General: Reports: 10 or more systems reviewed and unremarkable except in HPI and below PFSH ED PFSH: Medical History Bilateral primary osteoarthritis of knee History of renal angiogram Breast mass, right Abnormal mammogram of right breast Lumbar stenosis Atrial fibrillation Pacemaker Renal artery stenosis Hypertension Surgical History History of carpal tunnel surgery of left wrist History of carpal tunnel surgery of right wrist History of cholecystectomy S/P ablation of atrial fibrillation Social History Smoking and tobacco/nicotine status: never used tobacco/nicotine Alcohol intake: never Female Reproductive History: Spontaneous abortions: No Physical Exam Const: COMMON NORMALS: alert HENMT: COMMON NORMALS: normocephalic HEAD & SCALP: normocephalic Neck/C-Spine: COMMON NORMALS: full ROM Resp: COMMON NORMALS: normal respiratory effort Cardio: COMMON NORMALS: regular rate and regular rhythm RATE: regular rate RHYTHM: regular rhythm Back/Pelvis: COMMON NORMALS: thoracic and lumbar spine normal to inspection Extremity: COMMON NORMALS: full ROM Neuro: SENSORIUM/ORIENTATION: Yes alert Skin: COMMON NORMALS: no wounds Course Vital Signs: Vital signs: Vital Signs Temperature 97.7 F 10/03/24 17:18 Pulse Rate 81 10/03/24 17:18 Respiratory Rate 17 10/03/24 17:18 Blood Pressure 185/69 10/03/24 17:18 Pulse Oximetry 98 10/03/24 17:18 Oxygen Delivery Me thod Room Air 10/03/24 17:18 MDM - Extremity (Nontraumatic) Medical Decision Making Patient comes in today for complaints of right shoulder pain. On exam patient appears nontoxic. Patient appears no acute distress. Cap refill and sensation is intact distally. Patient has decreased range of motion of the right shoulder. No obvious dislocation is noted. Differential diagnosis includes not limited to fracture, dislocation, contusion. X-ray of the shoulder notes a probable impacted fracture of the proximal humerus. No obvious displacement. Reviewed exam with patient with recommendations for sling and following up with orthopedics for further evaluation and treatment. Patient was written for some hydrocodone for her pain. Patient reports understanding agreed to plan. XR interpretation done by ED provider, pending radiology final review Discharge Plan Discharge Patient Disposition: Home Clinical Impression: Fracture, humerus, proximal Qualifiers: Encounter type: initial encounter Fracture type: closed Fracture morphology: unspecified fracture morphology Laterality: right Qualified Code(s): S42.201A - Unspecified fracture of upper end of right humerus, initial encounter for closed fracture Condition: Stable Prescriptions: New hydrocodone-acetaminophen 5-325 mg tablet 1 tab PO Q6H PRN (Reason: pain) Qty: 20 0RF Rx Instructions: DX: proximal humeral fracture No Action albuterol sulfate [ProAir HFA] 90 mcg/actuation HFA aerosol inhaler 1 puff inhalation Q6H PRN (Reason: shortness of breath or wheezing) Qty: 8.5 3RF ciprofloxacin-dexamethasone [Ciprodex] 0.3-0.1 % drops,suspension 4 drp otic (ear) BID Qty: 7.5 0RF Centrum Silver Women 8 mg iron-400 mcg-300 mcg tablet 1 tab PO QAM melatonin 3 mg tablet 6 mg PO BEDTIME cholecalciferol (vitamin D3) [Vitamin D3] 125 mcg (5,000 unit) tablet 125 mcg PO QAM Monovisc 88 mg/4 mL syringe 4 ml intra-articular .COMPLEX Qty: 8 0RF Rx Instructions: 4 mL intra-articularly once every 6 months and 1 day; spironolactone 25 mg tablet 25 mg PO DAILY Qty: 90 3RF furosemide 20 mg tablet 20 mg PO DAILY PRN (Reason: edema) Qty: 90 3RF Rx Instructions: Take one tab by mouth when swelling begins and stop when swelling subsides. nitroglycerin [Nitrostat] 0.4 mg tablet, sublingual 0.4 mg sublingual Q5M PRN (Reason: chest pain) Qty: 25 11RF Rx Instructions: do not exceed 3 doses per episode amlodipine 5 mg tablet 5 mg PO QAM Qty: 90 3RF metoprolol succinate 25 mg tablet extended release 24 hr 25 mg PO BEDTIME Qty: 90 3RF pantoprazole 40 mg tablet,delayed release (DR/EC) 40 mg PO BEDTIME Qty: 90 3RF rosuvastatin 20 mg tablet 20 mg PO BEDTIME Qty: 90 3RF trazodone 50 mg tablet 50 mg PO DAILY PRN (Reason: insomnia) 90 Days Qty: 90 3RF Rx Instructions: Take 1/2 to 1 tab PO at bedtime as needed for insomnia. valsartan 320 mg tablet 320 mg PO QAM Qty: 90 3RF Xarelto 20 mg tablet 20 mg PO BEDTIME Qty: 90 3RF gabapentin 100 mg capsule See Rx Instructions .ROUTE .COMPLEX Qty: 90 3RF Dose Instruction: TAKE 1 CAPSULE EVERY MORNING Rx Instructions: TAKE 1 CAPSULE EVERY MORNING lidocaine 5 % adhesive patch,medicated See Rx Instructions .ROUTE .COMPLEX Qty: 30 11RF Dose Instruction: APPLY 1 PATCH TOPICALLY DAILY. LEAVE ON MOST PAINFUL AREA FOR UP TO 12 HOURS Rx Instructions: APPLY 1 PATCH TOPICALLY DAILY. LEAVE ON MOST PAINFUL AREA FOR UP TO 12 HOURS THEN OFF FOR 12 HOURS nitroglycerin 0.4 mg/hr patch 24 hour See Rx Instructions .ROUTE .COMPLEX Qty: 30 11RF Dose Instruction: APPLY 1 PATCH TRANSDERMALLY DAILY. ALLOW NITRATE FREE INTERVAL OF APPROXIMATELY 10 TO 12 HOURS PER 24 HOUR PERIOD Rx Instructions: APPLY 1 PATCH TRANSDERMALLY DAILY. ALLOW NITRATE FREE INTERVAL OF APPROXIMATELY 10 TO 12 HOURS PER 24 HOUR PERIOD Premarin 0.625 mg/gram cream See Rx Instructions .ROUTE .COMPLEX Qty: 90 3RF Rx Instructions: Administer 1g daily PRN vaginal dryness. May use for one month, then need 5 days off. diclofenac sodium 1 % gel See Rx Instructions .ROUTE .COMPLEX Qty: 100 12RF Dose Instruction: APPLY 2 GRAMS TOPICALLY FOUR TIMES A DAY. APPLY TO SINGLE ELBOW, WRIST, OR HAND. FOR HAND INCLUDES PALM, FINGERS, BACK OF HAND Rx Instructions: APPLY 2 GRAMS TOPICALLY FOUR TIMES A DAY. APPLY TO SINGLE ELBOW, WRIST, OR HAND. FOR HAND INCLUDES PALM, FINGERS, BACK OF HAND Monovisc 88 mg/4 mL syringe 4 ml intra-articular ONCE Qty: 2 0RF Rx Instructions: 1 injection to the left and right knee each. Discharge Orders: Discharge ED (Routine); Ordered 10/03/24 Ordered By: Emmanuel Ortiz Referrals: Alfa Huizar, [Primary Care Provider] - Discharge Diet: Usual diet Discharge Activity: Increase activity as tolerated Patient Instructions: Proximal Humerus Fracture (ED) Activity Restrictions/Additional Instructions: Wear sling for support to the arm and shoulder. Use medication acetaminophen as needed for pain. Use hydrocodone for more severe pain. Case management will be contacting you regarding follow-up appointment with orthopedics. Return to ER for new concerns. Print Language: Yoruba Coding Level of Care Code ED Territory Sales Representative for Padmini Merida
[2024-10-03 18:48] VITALS: BP 111/65; PULSE 71; O2SAT 97
[2024-10-03] MEDS: HYDROcodone-acetaminophen 5-325 mg Tablet 1 TAB PO ×2 (18:50)
--- NOTE | 2024-10-04 07:48 | DCPLANNER ---
messaged ortho for er f/u
== END 2024-10-03 18:49 | disposition home or self-care (01) ==
PROVIDERS: Emergency Provider Nurse Practitioner Family; PCP Family Medicine
DX: S42.201A Unspecified fracture of upper end of right humerus, initial encounter for closed fracture (principal); Z95.0 Presence of cardiac pacemaker; I10 Essential (primary) hypertension; W01.0XXA Fall on same level from slipping, tripping and stumbling without subsequent striking against object, initial encounter
CPT/HCPCS: 73030; 80053; 80061; 81000; 82306; 82607; 83036; 83735; 84100; 84443; 85025; 99283; J9999

== ENCOUNTER → 2024-10-10 15:23 | Outpatient (BNVA) | payer MEDICARE, OTHER, SELFPAY | PROVIDERS: PCP Family Medicine; Visit Provider Orthopaedic Surgery | DX: S42.201A Unspecified fracture of upper end of right humerus, initial encounter for closed fracture (principal); W01.0XXA Fall on same level from slipping, tripping and stumbling without subsequent striking against object, initial encounter | CPT/HCPCS: 73030; 99213 ==

== ENCOUNTER → 2024-10-31 10:45 | Outpatient (BNVA) | payer MEDICARE, OTHER, SELFPAY | PROVIDERS: PCP Family Medicine; Visit Provider Orthopaedic Surgery | DX: S42.294D Other nondisplaced fracture of upper end of right humerus, subsequent encounter for fracture with routine healing (principal); X58.XXXD Exposure to other specified factors, subsequent encounter | CPT/HCPCS: 73030; 99213 ==

== ENCOUNTER → 2024-12-12 10:36 | Outpatient (BNVA) | payer MEDICARE, OTHER, SELFPAY | PROVIDERS: PCP Family Medicine; Visit Provider Orthopaedic Surgery | DX: S42.294D Other nondisplaced fracture of upper end of right humerus, subsequent encounter for fracture with routine healing (principal); X58.XXXD Exposure to other specified factors, subsequent encounter; M25.512 Pain in left shoulder | CPT/HCPCS: 73030; 99213 ==

== ENCOUNTER → 2024-12-13 09:12 | Outpatient (BNVA) | payer MEDICARE, OTHER, SELFPAY | PROVIDERS: PCP Family Medicine; Visit Provider Specialist | DX: M17.0 Bilateral primary osteoarthritis of knee (principal) | CPT/HCPCS: 20610; J7327 ==

== ENCOUNTER 2024-12-22 05:00 | Outpatient (RCR) | payer MEDICARE, OTHER, SELFPAY | END 2025-01-20 23:59 | disposition home or self-care (01) | LOC: TPT 05:00 | PROVIDERS: PCP Family Medicine; Visit Provider Orthopaedic Surgery | DX: S42.201D Unspecified fracture of upper end of right humerus, subsequent encounter for fracture with routine healing (principal); X58.XXXD Exposure to other specified factors, subsequent encounter | CPT/HCPCS: 97110; 97161 ==

== ENCOUNTER 2025-01-21 05:00 | Outpatient (RCR) | payer MEDICARE, OTHER, SELFPAY | END 2025-02-07 13:46 | disposition home or self-care (01) | LOC: TPT 05:00 | PROVIDERS: PCP Family Medicine; Visit Provider Orthopaedic Surgery | DX: S42.201D Unspecified fracture of upper end of right humerus, subsequent encounter for fracture with routine healing (principal); X58.XXXD Exposure to other specified factors, subsequent encounter | CPT/HCPCS: 97110 ==

== ENCOUNTER → 2025-01-23 10:54 | Outpatient (BNVA) | payer MEDICARE, OTHER, SELFPAY | PROVIDERS: PCP Family Medicine; Visit Provider Orthopaedic Surgery | DX: S42.294D Other nondisplaced fracture of upper end of right humerus, subsequent encounter for fracture with routine healing (principal); X58.XXXD Exposure to other specified factors, subsequent encounter | CPT/HCPCS: 99213 ==

== ENCOUNTER → 2025-03-20 12:35 | Outpatient (BNVA) | payer MEDICARE, OTHER, SELFPAY | PROVIDERS: PCP Family Medicine; Visit Provider Family Medicine | DX: I10 Essential (primary) hypertension (principal); R73.9 Hyperglycemia, unspecified; E03.9 Hypothyroidism, unspecified; N18.9 Chronic kidney disease, unspecified; M47.26 Other spondylosis with radiculopathy, lumbar region | CPT/HCPCS: 80053; 80061; 82607; 84443; 85025 ==

== ENCOUNTER → 2025-06-12 11:14 | Outpatient (BNVA) | payer MEDICARE, OTHER, SELFPAY | PROVIDERS: PCP Family Medicine; Visit Provider Family Medicine | DX: E03.9 Hypothyroidism, unspecified (principal); R73.9 Hyperglycemia, unspecified; I10 Essential (primary) hypertension; M47.26 Other spondylosis with radiculopathy, lumbar region | CPT/HCPCS: 80053; 83036; 84443; 85025 ==

== ENCOUNTER → 2025-06-13 08:39 | Outpatient (BNVA) | payer MEDICARE, OTHER, SELFPAY | PROVIDERS: PCP Family Medicine; Visit Provider Specialist | DX: M17.0 Bilateral primary osteoarthritis of knee (principal) | CPT/HCPCS: 20610; J7327 ==

== ENCOUNTER 2025-07-14 10:29 | Outpatient (CLI) | payer MEDICARE, OTHER, SELFPAY ==
--- NOTE | 2025-07-14 10:36 | MM_ITS ---
WS: [id number] BILATERAL SCREENING DIGITAL TOMOSYNTHESIS MAMMOGRAM WITH CAD HISTORY: SCREENING COMPARISON: 07/12/2024, 07/10/2023, 07/06/2022 Bilateral CC and MLO views with tomosynthesis and synthetic mammography submitted. Computer aided detection analyzed. Breast composition: There are scattered areas of fibroglandular density. No suspicious masses, microcalcifications or architectural distortion. MM/MM scr BI tomosynthesis [id number] IMPRESSION: BI-RADS: 2 - Benign. FOLLOW UP: 1 Year Follow-up
== END 2025-07-14 10:30 | disposition home or self-care (01) ==
LOC: RAD 10:31
PROVIDERS: PCP Family Medicine; Visit Provider Family Medicine
DX: Z12.31 Encounter for screening mammogram for malignant neoplasm of breast (principal); R92.323 Mammographic fibroglandular density, bilateral breasts
CPT/HCPCS: 77063; 77067